=== PATIENT | female | born 1940 | race Caucasian/White ===

== ENCOUNTER 2021-10-07 09:52 | Day surgery (SDC) | payer MEDICARE, OTHER ==
[~2021-10-07] VITALS: Ht 160 cm; Wt 78.2 kg
[2021-10-07] MEDS ORDERED: TOPROL XL 50MG50 MG PO (10:32)
[2021-10-07] MEDS ORDERED: DILTIAZEM ER PO (10:33)
[2021-10-07] MEDS ORDERED: ULTRAM 50MG TAB50 MG PO (10:33)
[2021-10-07] MEDS ORDERED: PRESSOR VISION (10:34)
[2021-10-07 11:10] VITALS: BP 188/67; PULSE 71; TEMP 98.2
--- NOTE | 2021-10-07 11:15 | NUR ---
Raissa called about elevated BP 188/67. No new orders.
[2021-10-07] MEDS ORDERED: NORCO 325 MG-51 TAB PO (13:56)
[2021-10-07 14:30] VITALS: BP 159/57; PULSE 72; TEMP 989
--- NOTE | 2021-10-07 14:30 | NUR ---
Patient was escorted back to [facility] bay #2 by DI Hebert. Report obtained over the phone. Vitals obtained. Patient is awake and oriented x3. Her son was brought into the room from the waiting area. x5 incisions across abdomen are dry and intact, no drainage noted. Patient denies pain, but states discomfort. She requested ice water to drink and denies neusea. Will continue to monitor per intervals. Call carmona is at bedside. Side rails x2.
[2021-10-07 14:45] VITALS: BP 162/54; PULSE 70
--- NOTE | 2021-10-07 14:45 | NUR ---
Patient continues to drink her ice water. She requested a warm blueberry muffin to eat. Vitals obtained. Will continue to monitor per intervals.
[2021-10-07 15:00] VITALS: BP 168/61; PULSE 73
--- NOTE | 2021-10-07 15:00 | NUR ---
Vitals obtained. Patient requested jello. Call carmona is within reach.
[2021-10-07 15:15] VITALS: BP 170/55; PULSE 73
--- NOTE | 2021-10-07 15:15 | NUR ---
Patient was assisted to the bathroom and was able to void. Patient stated having discomfort around areas of incisions. She said sitting feels better than laying down. Vitals obtained. Patient expressed desire to be discharged.
--- NOTE | 2021-10-07 15:30 | NUR ---
IV discontinued at this time due to impending discharge. Catheter tip intact. Pressure dressing applied.
--- NOTE | 2021-10-07 15:35 | NUR ---
Discharge instructions and educational material was reviewed at this time. Patient verbalize understanding of the information and signed the related consent. She denied having any further questions or concerns. Patient was assisted changing into her personal clothes. PRN pain medication administered.
--- NOTE | 2021-10-07 15:55 | NUR ---
Patient was escorted out via wheelchair to the patient entrence by DI Hager. Her son Gomez has the discharge instructions and educational material. The patient has her personal belongings. Patient denied having any further questions. Patient asked if medications can be changed to a pharmacy in [place]. Script was E scribed to the orginal pharmacy given during pre-op.
== END 2021-10-07 15:55 | disposition home or self-care (01) ==
LOC: SDCO 09:52
DX: K80.64 Calculus of gallbladder and bile duct with chronic cholecystitis without obstruction (principal); I10 Essential (primary) hypertension; K21.9 Gastro-esophageal reflux disease without esophagitis; F17.210 Nicotine dependence, cigarettes, uncomplicated; G89.29 Other chronic pain; M25.519 Pain in unspecified shoulder; Z79.891 Long term (current) use of opiate analgesic; Z79.899 Other long term (current) drug therapy
CPT/HCPCS: J0330; J0690; J1100; J1610; J1885; J2405; J2704; J7120; Q9967

== ENCOUNTER 2023-10-22 10:31 | Inpatient (IN) | payer MEDICARE, OTHER ==
[~2023-10-22] VITALS: Ht 160 cm; Wt 83.4 kg
[~2023-10-22 10:31] MED LIST: CEFTIN 250250 MG/TAB PO; DILTIAZEM ER PO; NORCO 325 MG-51 TAB PO; PRESSOR VISION; TOPROL XL 50MG50 MG PO; ULTRAM 50MG TAB50 MG PO
[2023-10-22 10:53] LABS: COLLECTION METHOD CATHETER
[2023-10-22] MEDS ORDERED: NS 1,000 ML IV ONE (11:00)
[2023-10-22 11:13] LABS: PH 6.5 (5.0-8.5); SQUAMOUS EPITHELIAL 0-2 /hpf (0-10); URINE APPEARANCE Clear (CLEAR/HAZY); URINE BLOOD Negative (NEGATIVE); URINE COLOR Yellow (YELLOW); URINE GLUCOSE Negative (NEGATIVE); URINE KETONE Negative (NEGATIVE); URINE NITRATE Negative (NEGATIVE); URINE PROTEIN(semi-quant) Negative (NEGATIVE)
[2023-10-22 11:36] LABS: BASO # 0.1 K/mm3 (0.0-0.2); BASO % 1.1 % (0.0-2.0); EOS % 0.1 % (0.0-4.0); GRAN # 4.8 K/mm3 (1.4-6.5); GRAN % 66.1 % (42.2-75.2); LYMPH # 1.8 K/mm3 (1.2-3.4); LYMPH % 25.5 % (20.0-51.0); MEAN CELL VOLUME 101 fl (80.0-100.0); MEAN CORPUSCULAR HGB CONC 31 g/dl (33.0-37.0); MEAN PLATELET VOLUME 8.5 fl (7.4-10.4); MONO # 0.5 K/mm3 (0.1-0.6); MONO % 6.9 % (1.7-9.3); PLATELET COUNT 337 K/mm3 (130-400); REDCELL DISTRIBUTION WIDTH-CV 16.8 % (11.5-14.5)
[2023-10-22 11:42] LABS: HEMATOCRIT 30.4 % (37.0-47.0); HEMOGLOBIN 9.5 g/dl (12.5-16.0); MEAN CORPUSCULAR HEMOGLOBIN 32 pg (27-31)
[2023-10-22 11:51] LABS: ALBUMIN 3.1 gm/dL (3.4-4.8); BILIRUBIN,TOTAL 0.6 mg/dL (0.2-1.2); CALCIUM 9.3 mg/dL (8.4-10.2); CREATININE, serum 0.79 mg/dL (0.57-1.11); POTASSIUM 4.1 mmol/L (3.5-4.5); TOTAL PROTEIN 7.4 gm/dL (6.2-8.1)
[2023-10-22] MEDS ORDERED: dexAMETHasone 10 MG/ML VIAL IV ONE (12:00)
[2023-10-22] MEDS ORDERED: LIPITOR 80MG80 MG PO (12:31)
[2023-10-22] MEDS ORDERED: ASPIRIN 81M81 MG/TA2 PO (12:32)
[2023-10-22] MEDS ORDERED: PLAVIX 75MG TAB75 MG PO (12:33)
[2023-10-22] MEDS ORDERED: ZESTRIL 20MG TA20 MG PO (12:33)
[2023-10-22] MEDS ORDERED: REQUIP 0.5MG0.5 MG PO (12:34)
[2023-10-22] MEDS ORDERED: SENNA-LAX8.6 MG PO ×2 (12:34→15:52)
[2023-10-22] MEDS ORDERED: PRIL40 PO (12:36)
[2023-10-22] MEDS ORDERED: NEURONTIN300 MG/CAP PO (13:13)
[2023-10-22] MEDS ORDERED: NEURONTIN100 MG/CAP PO (13:14)
[2023-10-22] MEDS ORDERED: ULTRAM 50MG TAB50 MG PO (13:15)
[2023-10-22 14:35] VITALS: BP 151/73; PULSE 81
--- NOTE | 2023-10-22 14:48 | NUR ---
PATIENT ARRIVED FROM ER IN STABLE CONDITION. FALL PRECAUTIONS PUT IN PLACE. PATIENT IS DROWSY, AROUSABLE TO NAME. PATIENT IS CONFUSED. RN WILL DO ADMITION WITH PAPER WORK PROVIDED BY [facility] . PATIENTS CALL LIGHT WITHIN REACH. FALL PRECAUTIONS IN PLACE.
[2023-10-22 14:57] VITALS: BP_SYST 151
--- NOTE | 2023-10-22 15:51 | NUR ---
Eran at [facility] requested updates which SW provided via secure email.
[2023-10-22 17:11] VITALS: BP_SYST 151
--- NOTE | 2023-10-22 17:40 | NUR ---
FARZANEH AMIODARONE DISOCTINUED (2 HOURS POST PO ADMINISTRATION) ORDERED BY DR PHILLIP.
[2023-10-22] MEDS ORDERED: Acetaminophen 325 MG TAB PO PRN (18:15)
[2023-10-22] MEDS ORDERED: Polyethylene Glycol 3350 17 GM PDS PO PRN (18:15)
[2023-10-22] MEDS ORDERED: Ondansetron 4 MG/2 ML VIAL IV PRN (18:15)
[2023-10-22] MEDS ORDERED: Docusate Sodium 100 MG CAP PO PRN (18:15)
[2023-10-22] MEDS ORDERED: Albuterol 90 MCG/PUFF 8 GM MDI IH SCH (19:00)
[2023-10-22 19:43] VITALS: BP 161/62; PULSE 70; TEMP 97.3
[2023-10-22 21:00] VITALS: BP_SYST 161
[2023-10-22] MEDS ORDERED: Gabapentin 100 MG CAP PO SCH (21:00)
--- NOTE | 2023-10-22 22:59 | NUR ---
patient lying in bed alert and oriented x3 with some confusion/forgetfullness. pt denies chest pain and shortness of breath. IV in RF is patent, site clean dry and intact. general scattered bruising on extremities noted. pt up to bedside commode and back in bed x2 assist with weak gait. pt has no further needs questions or concerns. fall precautions in place, call light within reach, will continue to monitor.
[2023-10-22 23:12] VITALS: BP 97/45; PULSE 62; TEMP 98.3
[2023-10-23] VITALS (12 sets, daily range): BP systolic 117–148; BP diastolic 51–85; PULSE 72–101; TEMP 97.4–103.1
[2023-10-23] MEDS ORDERED: Omeprazole 40 MG **** subs to Pantoprazole 40 MG PO SCH (07:00)
[2023-10-23] MEDS ORDERED: PANTOPRAZOLE 40 MG PO SCH (07:00)
--- NOTE | 2023-10-23 07:30 | NUR ---
ELYSIA ASLEEP, RESTING IN BED. 2LNC. CALL LIGHT WITHIN REACH, BED ALARM ON, TELE SITTER ON. FALL PRECAUTIONS IN PLACE.
[2023-10-23 08:39] LABS: ALBUMIN 3.2 gm/dL (3.4-4.8); BILIRUBIN,TOTAL 0.6 mg/dL (0.2-1.2); CALCIUM 9.5 mg/dL (8.4-10.2); CREATININE, serum 0.78 mg/dL (0.57-1.11); POTASSIUM 4.1 mmol/L (3.5-4.5); TOTAL PROTEIN 7.7 gm/dL (6.2-8.1)
[2023-10-23 08:45] LABS: BASO # 0.1 K/mm3 (0.0-0.2); BASO % 1.1 % (0.0-2.0); EOS # 0.1 K/mm3 (0.0-0.7); GRAN % 62.4 % (42.2-75.2); HEMOGLOBIN 10.7 g/dl (12.5-16.0); LYMPH % 24.6 % (20.0-51.0); MEAN CELL VOLUME 104 fl (80.0-100.0); MEAN CORPUSCULAR HEMOGLOBIN 34 pg (27-31); MEAN CORPUSCULAR HGB CONC 32 g/dl (33.0-37.0); MEAN PLATELET VOLUME 8.6 fl (7.4-10.4); MONO # 0.8 K/mm3 (0.1-0.6); MONO % 9.9 % (1.7-9.3); PLATELET COUNT 345 K/mm3 (130-400); RED BLOOD COUNT 3.19 M/mm3 (4.10-5.30); REDCELL DISTRIBUTION WIDTH-CV 16.9 % (11.5-14.5)
[2023-10-23 08:46] LABS: HEMATOCRIT 33.1 % (37.0-47.0)
[2023-10-23] MEDS ORDERED: dexAMETHasone 10 MG/ML VIAL IV SCH (09:00)
[2023-10-23] MEDS ORDERED: Clopidogrel 75 MG TAB PO SCH (09:00)
[2023-10-23] MEDS ORDERED: Gabapentin 300 MG CAP PO SCH (09:00)
[2023-10-23] MEDS ORDERED: Lisinopril 10 MG TAB PO SCH (09:00)
[2023-10-23] MEDS ORDERED: rOPINIRole 0.5 MG TAB PO SCH (09:00)
[2023-10-23 12:06] LABS: ARTERIAL BLD GAS O2 SATURATION 93.5 % (92-100); ARTERIAL BLD GAS TCO2 CT 30.2; ARTERIAL BLOOD GAS BASE EXCESS 6.6 (-2-2); ARTERIAL BLOOD GAS HCO3 29.2 meq/L (22-26); ARTERIAL BLOOD GAS PCO2 34.5 mmHg (35-45); ARTERIAL BLOOD GAS PO2 63.2 mmHg (80-100); ARTERIAL BLOOD GAS pH 7.55 (7.35-7.45)
--- NOTE | 2023-10-23 15:50 | NUR ---
ELYSIA ASLEEP, RESTING IN BED. CALL LIGHT WITHIN REACH. TELESITTER PRESENT
[2023-10-23] MEDS ORDERED: Albuterol 90 MCG/PUFF 8 GM MDI IH PRN (18:45)
--- NOTE | 2023-10-23 18:49 | NUR ---
PATIANET TURNED Q2H. FULL BED/LINEN CHANGE CMOPLETE. PATIENT AROUSES TO NAME, BUT CONTINUES TO BE DROWSY. PATIENT CURRENTLY ON 1LNC. CALL LIGHT WITHIN REACH, BED ALARM ON, FALL PRECAUTIONS IN PLACE.
--- NOTE | 2023-10-23 21:25 | NUR ---
Patient assessed at this time, see shift assessment, drowsy at this time but arousable, VSS, remains on oxygen at 1LPM, incontinent of urine at this time, pericare provided, pad changed, call light and personal items within reach, fall precautions in place, will continue to monitor.
--- NOTE | 2023-10-23 22:58 | NUR ---
Patient called and said she wanted to get up, this nurse came into her, patient thinks it's time for breakfast, reorientated patient, offered her jello and sandwich box, took pills fine, denies further needs, call light and personal items within reach.
[2023-10-24] VITALS (12 sets, daily range): BP systolic 100–155; BP diastolic 42–85; PULSE 68–116; TEMP 97.3–103
--- NOTE | 2023-10-24 04:55 | NUR ---
Incontinent of urine at this time, pericare provided, changed pad, repositioned patient to her left side, temp at 97.3.
--- NOTE | 2023-10-24 05:15 | NUR ---
MEW score of 3, reviewed with charge nurse.
[2023-10-24 07:24] LABS: BASO % 0.4 % (0.0-2.0); EOS % 0.1 % (0.0-4.0); GRAN # 5.5 K/mm3 (1.4-6.5); GRAN % 75.9 % (42.2-75.2); LYMPH # 0.9 K/mm3 (1.2-3.4); LYMPH % 12.9 % (20.0-51.0); MEAN CELL VOLUME 100 fl (80.0-100.0); MEAN CORPUSCULAR HGB CONC 32 g/dl (33.0-37.0); MEAN PLATELET VOLUME 8.6 fl (7.4-10.4); MONO # 0.8 K/mm3 (0.1-0.6); MONO % 10.4 % (1.7-9.3); PLATELET COUNT 328 K/mm3 (130-400); RED BLOOD COUNT 2.85 M/mm3 (4.10-5.30); REDCELL DISTRIBUTION WIDTH-CV 16.7 % (11.5-14.5)
[2023-10-24 07:25] LABS: HEMATOCRIT 28.5 % (37.0-47.0); HEMOGLOBIN 9.1 g/dl (12.5-16.0); MEAN CORPUSCULAR HEMOGLOBIN 32 pg (27-31)
[2023-10-24 07:47] LABS: ALBUMIN 2.9 gm/dL (3.4-4.8); BILIRUBIN,TOTAL 0.5 mg/dL (0.2-1.2); CALCIUM 8.9 mg/dL (8.4-10.2); CREATININE, serum 0.78 mg/dL (0.57-1.11); MAGNESIUM 1.8 mg/dL (1.6-2.6); POTASSIUM 3.6 mmol/L (3.5-4.5); TOTAL PROTEIN 7.2 gm/dL (6.2-8.1)
--- NOTE | 2023-10-24 09:10 | NUR ---
Patient awake, alert, confused. Breathing regularly at rest, shortness of breath with exertion. Able to stand/pivot with the assistance of two staff members. Denies pain or nausea. Bed in lowest position with call light within reach. Requesting additional food and snacks throughout the day. Bed alarm on, telesitter in place.
--- NOTE | 2023-10-24 16:12 | NUR ---
horticulture worker was informed pt is from [facility]. SW emailed clinical updates to Eran at [facility]. Discharge Plan: [facility]
--- NOTE | 2023-10-24 18:48 | NUR ---
Oxygen removed, patient breathing easily with O2 sat in the mid 90s. Tolerated dinner well, denies further needs at this time. Bed in lowest position with call light within reach, bed alarm on.
--- NOTE | 2023-10-24 19:50 | NUR ---
PATIENT RESTING IN BED WITH TV ON WITH AUDIBLE SNORING HEARD WITH NO ACUTE DISTRESS NOTED. PATIENT EASILY AROUSED. PATIENT ON ROOM AIR. TELEMETRY INTACT. ASSESSMENT AND MEDICATION ADMINISTRATION COMPLETED AT THIS TIME. PATIENT TOLERATED WELL. ALL NEEDS MET. BED IN LOW POSITION WITH WHEELS LOCKED WITH RAILS UP X3 AND CALL LIGHT WITHIN REACH. BED ALARM ON.
[2023-10-25] VITALS (7 sets, daily range): BP systolic 143–161; BP diastolic 52–67; PULSE 89–103; TEMP 98.5–100.5
[2023-10-25 07:45] LABS: BASO # 0.1 K/mm3 (0.0-0.2); EOS # 0.1 K/mm3 (0.0-0.7); EOS % 1.6 % (0.0-4.0); GRAN # 5.1 K/mm3 (1.4-6.5); GRAN % 63.3 % (42.2-75.2); LYMPH # 1.8 K/mm3 (1.2-3.4); MEAN CELL VOLUME 97 fl (80.0-100.0); MEAN CORPUSCULAR HGB CONC 32 g/dl (33.0-37.0); MEAN PLATELET VOLUME 8.6 fl (7.4-10.4); MONO # 0.9 K/mm3 (0.1-0.6); MONO % 11.8 % (1.7-9.3); PLATELET COUNT 318 K/mm3 (130-400); RED BLOOD COUNT 3.05 M/mm3 (4.10-5.30); REDCELL DISTRIBUTION WIDTH-CV 16.1 % (11.5-14.5)
[2023-10-25 07:53] LABS: HEMATOCRIT 29.5 % (37.0-47.0); HEMOGLOBIN 9.5 g/dl (12.5-16.0); MEAN CORPUSCULAR HEMOGLOBIN 31 pg (27-31)
[2023-10-25 08:12] LABS: ALBUMIN 2.9 gm/dL (3.4-4.8); BILIRUBIN,TOTAL 0.3 mg/dL (0.2-1.2); CALCIUM 8.6 mg/dL (8.4-10.2); CREATININE, serum 0.78 mg/dL (0.57-1.11); MAGNESIUM 1.8 mg/dL (1.6-2.6); POTASSIUM 3.5 mmol/L (3.5-4.5); TOTAL PROTEIN 7.4 gm/dL (6.2-8.1)
[2023-10-25] MEDS ORDERED: ZESTRIL30 MG PO (09:19)
--- NOTE | 2023-10-25 09:41 | NUR ---
Patient awake, alert, confused. Assisted to bedside commode, x1 assist. On room air, slight temperature this AM, hospitalist aware. Good appetite. Fall precautions in place, telesitter in room.
--- NOTE | 2023-10-25 10:28 | NUR ---
Report called to Trini owens via [facility].
--- NOTE | 2023-10-25 11:09 | NUR ---
plate put in worker was informed pt can discharge to [facility] today. KEISHA sent orders and updates to [facility]. Eran arranged a picker tender of 10:45am. KEISHA attempted to call patient's room to complete intake and no answer. RN reports pt is not oriented and confused. KEISAH left a voicemail to pt's son, Gomez [phone] regarding intake and discharge. IM from Medicare could not be completed. Discharge Plan: [facility] 10:45am
--- NOTE | 2023-10-25 11:18 | NUR ---
Discharged to [facility], IV and air sampling and monitoring removed prior to discharge. All belongings sent with patient.
== END 2023-10-25 11:00 | DRG 177 ==
LOC: COL.ER 10:31 → MEDICAL 12:11
PROVIDERS: Physician Assistant; ADMIT Hospitalist
DX: U07.1 COVID-19 (principal); J96.01 Acute respiratory failure with hypoxia; Z86.73 Personal history of transient ischemic attack (TIA), and cerebral infarction without residual deficits; F03.90 Unspecified dementia, unspecified severity, without behavioral disturbance, psychotic disturbance, mood disturbance, and anxiety; K21.9 Gastro-esophageal reflux disease without esophagitis; I10 Essential (primary) hypertension; I48.91 Unspecified atrial fibrillation; G25.81 Restless legs syndrome
CPT/HCPCS: J1100; J1650; J7030

== ENCOUNTER 2023-10-31 15:42 | Inpatient (IN) | payer MEDICARE, OTHER ==
[~2023-10-31] VITALS: Ht 167.6 cm; Wt 83.0 kg
[~2023-10-31 15:42] MED LIST changes: +ASPIRIN 81M81 MG/TA2 PO; +LIPITOR 80MG80 MG PO; +NEURONTIN100 MG/CAP PO; +NEURONTIN300 MG/CAP PO; +PLAVIX 75MG TAB75 MG PO; +PRIL40 PO; +REQUIP 0.5MG0.5 MG PO; +SENNA-LAX8.6 MG PO; +ZESTRIL 20MG TA20 MG PO; +ZESTRIL30 MG PO
[2023-10-31 16:33] LABS: BASO % 0.4 % (0.0-2.0); EOS % 0.1 % (0.0-4.0); GRAN # 6.1 K/mm3 (1.4-6.5); HEMATOCRIT 29.9 % (37.0-47.0); HEMOGLOBIN 9.1 g/dl (12.5-16.0); LYMPH # 1.2 K/mm3 (1.2-3.4); LYMPH % 15.3 % (20.0-51.0); MEAN CELL VOLUME 99 fl (80.0-100.0); MEAN CORPUSCULAR HEMOGLOBIN 30 pg (27-31); MEAN CORPUSCULAR HGB CONC 30 g/dl (33.0-37.0); MONO # 0.4 K/mm3 (0.1-0.6); MONO % 4.8 % (1.7-9.3); PLATELET COUNT 358 K/mm3 (130-400); RED BLOOD COUNT 3.02 M/mm3 (4.10-5.30); REDCELL DISTRIBUTION WIDTH-CV 16.6 % (11.5-14.5)
[2023-10-31 16:52] LABS: ALBUMIN 2.4 gm/dL (3.4-4.8); BILIRUBIN,TOTAL 0.4 mg/dL (0.2-1.2); CALCIUM 8.7 mg/dL (8.4-10.2); CREATININE, serum 1.56 mg/dL (0.57-1.11); TOTAL PROTEIN 7.2 gm/dL (6.2-8.1)
[2023-10-31 18:04] LABS: COLLECTION METHOD CLEAN CATCH
[2023-10-31 18:25] LABS: PH 5.5 (5.0-8.5); URINE APPEARANCE Clear (CLEAR/HAZY); URINE BLOOD 2+ (NEGATIVE); URINE COLOR Straw (YELLOW); URINE GLUCOSE Negative (NEGATIVE); URINE KETONE Negative (NEGATIVE); URINE NITRATE Negative (NEGATIVE); URINE PROTEIN(semi-quant) 1+ (NEGATIVE); URINE UROBILINOGEN 0.2 E.U/dL (0.2-1.0)
[2023-10-31 18:26] LABS: SQUAMOUS EPITHELIAL 0-2 /hpf (0-10); URINE BACTERIA Rare /hpf (NONE SEEN)
[2023-10-31 21:00] VITALS: BP_SYST 124
--- NOTE | 2023-10-31 21:58 | NUR ---
PATIENT ARRIVED TO UNIT WITH ED RN AND TECH.
[2023-10-31 22:14] VITALS: BP 124/40; PULSE 85; TEMP 98.4
--- NOTE | 2023-10-31 22:56 | NUR ---
PATIENT DOES NOT APPEAR TO BE IN DISTRESS AT THIS TIME. WILSON CATHETAR IN PALCE WITH DEPENDENT DRAINAGE. SUPPLEMENTAL OXYGEN BEING PROVIDED VIA NASAL CANNULA AT 3L. PATIENT IS ONLY ORIENTED TO SELF AND IS HOLLERING OUT. RN CALLED VIA [employer] AND STAFF REPORTED THIS IS BASELINE. SHE IS DEMENTED AND HOLLERS FREQUENTLY. PATIENT REQUESTED SANDWICH BOX. NO FURTHER NEEDS AT THIS TIME. PATIENT STATING "HOW DO I GET OUT OF HERE". BED IN LOW POSITION AND CALL LIGHT WITHIN REACH. BED ALARM ON.
[2023-11-01] VITALS (14 sets, daily range): BP systolic 14–148; BP diastolic 52–113; PULSE 64–798; TEMP 97.7–98
[2023-11-01] MEDS ORDERED: NEURONTIN300 MG/CAP PO (09:36)
[2023-11-01 09:39] LABS: BASO % 0.1 % (0.0-2.0); GRAN # 6.2 K/mm3 (1.4-6.5); GRAN % 83.8 % (42.2-75.2); LYMPH # 0.8 K/mm3 (1.2-3.4); LYMPH % 11.3 % (20.0-51.0); MEAN CELL VOLUME 95 fl (80.0-100.0); MEAN CORPUSCULAR HGB CONC 32 g/dl (33.0-37.0); MEAN PLATELET VOLUME 8.9 fl (7.4-10.4); MONO # 0.3 K/mm3 (0.1-0.6); MONO % 4.3 % (1.7-9.3); PLATELET COUNT 383 K/mm3 (130-400); REDCELL DISTRIBUTION WIDTH-CV 16.1 % (11.5-14.5)
[2023-11-01 09:46] LABS: HEMATOCRIT 27.4 % (37.0-47.0); HEMOGLOBIN 8.7 g/dl (12.5-16.0); MEAN CORPUSCULAR HEMOGLOBIN 30 pg (27-31)
[2023-11-01 09:55] LABS: ALBUMIN 2.2 gm/dL (3.4-4.8); CALCIUM 8.8 mg/dL (8.4-10.2); CREATININE, serum 0.85 mg/dL (0.57-1.11); MAGNESIUM 1.7 mg/dL (1.6-2.6); POTASSIUM 3.9 mmol/L (3.5-4.5)
--- NOTE | 2023-11-01 10:03 | NUR ---
Patient awake, alert, confused. Denies pain or nausea, shortness of breath on exertion, nasal cannula in place. Repetitive, asking for breakfast and to get up. Bed alarm on, fall precautions in place. Bed in lowest position with call light within reach.
--- NOTE | 2023-11-01 13:00 | NUR ---
Patient complaining of foot pain - no PRN orders, Dr. Garner called, see orders.
--- NOTE | 2023-11-01 13:31 | NUR ---
Patient was recently in the hospital on medical floor and this SW was unable to make contact with Gomez FLETCHER [phone]. KEISHA spoke with RN Savanna who reports pt is not alert and oriented so not appropriate for SW to complete intake. KEISHA was notified by [facility] patient was at [facility]. SW left a voicemail to sonGomez. Discharge Plan: [facility]
--- NOTE | 2023-11-01 14:29 | NUR ---
yarn dry room worker viewed an individual go to patient's room and RN stopped him for SW. He confirmed he is son, Rei [phone]. SW went over intake information to the best of his ability. He states pt is from [facility] and is unsure who her provider is and where medications are retrieved. He reports he is DPOA-HC. He said she needs full assistance with ADLS and at baseline she uses a wheelchair for DME. He would like her to return to [facility] LTC. Discharge Plan: [facility] Long-term care
--- NOTE | 2023-11-01 18:52 | NUR ---
PATIENT RESTING IN BED WITH TV ON WITH NO ACUTE DISTRESS NOTED. PATIENT ON 2 LITERS OF OXYGEN VIA NC. TELEMETRY INTACT. TELESITTER AT BEDSIDE. INT TO LEFT AC INTACT WITH NO COMPLICATIONS NOTED. PATIENT CARE TAKEN OVER FROM LILIANA AT THIS TIME. BED IN LOW POSITION WTIH WHEELS LOCKED WITH RAILS UP X3 AND CALL LIGHT WITHIN REACH. BED ALARM ON.
--- NOTE | 2023-11-01 20:15 | NUR ---
PATIENT RESTING IN BED WATCHING TV WITH NO ACUTE DISTRESS NOTED. PATIENT ON 2 LITERS OF OXYGEN VIA NC. ASSESSMENT AND MEDICATION ADMINISTRATION COMPLETED AT THIS TIME. PATIENT C/O BACK PAIN. PO ULTRAM GIVEN PER MD ORDER. PATIETN GIVEN PUDDING FOR NIGHT TIME SNACK. PATIENT TOELRATED WELL. PATIENT NOTED TO HAVE TREMORS IN ARMS UPON MOVEMENT. PATIENT REQUESTED MORE WATER. ICE AND WATER GIVEN. ALL NEEDS MET. BED IN LOW POSITION WITH WHEELS LOCKED WITH RAILS UP X3 AND CALL LIGHT WITHIN REACH. BED ALARM ON.
[2023-11-02] VITALS (12 sets, daily range): BP systolic 136–180; BP diastolic 56–79; PULSE 61–74; TEMP 97.3–98.5
[2023-11-02 07:24] LABS: BASO % 0.1 % (0.0-2.0); EOS % 0.1 % (0.0-4.0); GRAN # 9.2 K/mm3 (1.4-6.5); GRAN % 87.3 % (42.2-75.2); LYMPH # 0.8 K/mm3 (1.2-3.4); LYMPH % 7.2 % (20.0-51.0); MEAN CELL VOLUME 91 fl (80.0-100.0); MEAN CORPUSCULAR HGB CONC 34 g/dl (33.0-37.0); MEAN PLATELET VOLUME 9.3 fl (7.4-10.4); MONO # 0.5 K/mm3 (0.1-0.6); MONO % 4.7 % (1.7-9.3); RED BLOOD COUNT 2.95 M/mm3 (4.10-5.30); REDCELL DISTRIBUTION WIDTH-CV 16.1 % (11.5-14.5)
[2023-11-02 07:29] LABS: ALBUMIN 2.1 gm/dL (3.4-4.8); CALCIUM 8.5 mg/dL (8.4-10.2); CREATININE, serum 0.7 mg/dL (0.57-1.11); MAGNESIUM 1.7 mg/dL (1.6-2.6); PHOSPHOROUS 1.6 mg/dL (2.3-4.7); POTASSIUM 5.5 mmol/L (3.5-4.5)
[2023-11-02 07:49] LABS: HEMATOCRIT 26.9 % (37.0-47.0); MEAN CORPUSCULAR HEMOGLOBIN 31 pg (27-31); PLATELET COUNT 431 K/mm3 (130-400)
--- NOTE | 2023-11-02 09:33 | NUR ---
Patient alert and oriented to self and situation at baseline. Shift assessment complete. Patient noted to have some SOA with exertion. Tolerating food and fluids well. O2 stable on 2L oxymask. Patient denies pain. All needs met at this time.
--- NOTE | 2023-11-02 10:20 | NUR ---
fibreglass lay up worker was informed by Dr. Garner pt could potentially discharge tomorrow due to increase in oxygen. [facility] SW completed IM from Medicare. Pt verbalized understanding of KEISHA's statements. KEISHA provided pt a copy and placed original in chart. Discharge plan: [facility]
--- NOTE | 2023-11-02 13:51 | NUR ---
ICU nurse called to notify this nurse that hearth rhythm was in Afib. Patient in dialysis at this time, heart rhythm now in sinus. Rate has been in 70s. Dr. Alaniz and RT notified.
--- NOTE | 2023-11-02 19:17 | NUR ---
PRN Ultram administered for noted discomfort. Patient alert and oriented at baseline. Currently in bed with call light in reach.
--- NOTE | 2023-11-02 19:30 | NUR ---
PATIENT SITTING UP IN BED WITH TV ON WITH NO ACUTE DISTRESS NOTED. PATIENT ON 4 LITERS OF OXYGEN VIA NC. DOXYCYCLINE STOPPED FOR IV LEAKING AND INFLAMMATION. ASSESSMENT AND MEDICATION ADMINISTRATION COMPLETED AT THIS TIME. PATIENT TOLERATED WELL. PATIENT TRAY SET UP AND PATIENT EATING. PATIENT DENIES ANY NEEDS AT PRESENT. BED IN LOW POSITION WITH WHEELS LOCKED WITH RAILS UP X3 AND CALL LIGHT WITHIN REACH. TELESITTER IN ROOM. BED ALARM ON.
--- NOTE | 2023-11-02 19:55 | NUR ---
IV REMOVED FROM LEFT AC WITH CATHETER INTACT AND PRESSURE DRESSING APPLIED. PATIENT TOLERATED WELL.
--- NOTE | 2023-11-02 21:40 | NUR ---
BLOOD PRESSURE RECHECKED. BP 161/56 NOW.
[2023-11-03 01:00] VITALS: BP_SYST 119
--- NOTE | 2023-11-03 03:00 | NUR ---
RECEIVED REPORT FROM DI FERRARA.
[2023-11-03 03:18] VITALS: BP 119/84; PULSE 61; TEMP 98.3
[2023-11-03 05:00] VITALS: BP_SYST 119
[2023-11-03 06:54] VITALS: BP 167/81; PULSE 63; TEMP 97.7
[2023-11-03 07:34] LABS: GRAN # 8.4 K/mm3 (1.4-6.5); GRAN % 81.7 % (42.2-75.2); LYMPH # 1.2 K/mm3 (1.2-3.4); LYMPH % 11.5 % (20.0-51.0); MEAN CELL VOLUME 94 fl (80.0-100.0); MEAN CORPUSCULAR HGB CONC 32 g/dl (33.0-37.0); MEAN PLATELET VOLUME 8.8 fl (7.4-10.4); MONO # 0.6 K/mm3 (0.1-0.6); MONO % 5.9 % (1.7-9.3); PLATELET COUNT 509 K/mm3 (130-400); RED BLOOD COUNT 2.95 M/mm3 (4.10-5.30); REDCELL DISTRIBUTION WIDTH-CV 16.4 % (11.5-14.5)
[2023-11-03 07:48] LABS: ALBUMIN 2.2 gm/dL (3.4-4.8); CALCIUM 8.7 mg/dL (8.4-10.2); CREATININE, serum 0.69 mg/dL (0.57-1.11); MAGNESIUM 1.5 mg/dL (1.6-2.6); PHOSPHOROUS 2.4 mg/dL (2.3-4.7); POTASSIUM 3.9 mmol/L (3.5-4.5)
[2023-11-03 07:54] LABS: HEMATOCRIT 27.8 % (37.0-47.0); HEMOGLOBIN 8.9 g/dl (12.5-16.0); MEAN CORPUSCULAR HEMOGLOBIN 30 pg (27-31)
[2023-11-03 08:30] VITALS: BP_SYST 167
[2023-11-03] MEDS ORDERED: PROAIR HFA0.09 MG/AC IH (11:04)
[2023-11-03] MEDS ORDERED: DECADRON6 MG PO (11:04)
[2023-11-03] MEDS ORDERED: OMNICEF 300MG300 MG PO (11:04)
[2023-11-03] MEDS ORDERED: ANORO IH (11:05)
[2023-11-03] MEDS ORDERED: RT Anoro Ellipta IH (11:05)
[2023-11-03] MEDS ORDERED: DOXYCYCLINE 10100 MG PO (11:05)
--- NOTE | 2023-11-03 12:10 | NUR ---
Patient alert and oriented at baseline. Shift assessment completed this morning. Wheezes noted upon expiration to right side lung salmon. Patient appears flushed. BP elevated in 160s. Agitation noted as well, patient kept repeating "help me" and shouting. Re-direction did not last long. PRN Tramadol administered and patient calmed for 15 minutes before she began shouting again. Patient noted to have anxiety about when she can "get out." Dr. Garner updated on patient condition. Orders obtained for Seroquel and administered. Total bed bath provided to patient and linens changed, patient fell asleep shortly after.
--- NOTE | 2023-11-03 13:06 | NUR ---
hospital food service worker was informed pt can discharge today back to [facility]. KEISHA faxed discharge orders to Eran at [facility]. They can transport at 1:30pm. Discharge Plan: [facility] 1:30PM
--- NOTE | 2023-11-03 14:23 | NUR ---
Patient transferred back to [facility] around 1420. Transfer paperwork sent with transportation. IV discontinued to right wrist with no complications. Telemetry off. Torres discontinued per verbal orders from Dr. Garner. Attempted to call report to [facility], sent to [facility]. Mailbox full.
== END 2023-11-03 14:20 | DRG 177 ==
LOC: COL.ER 15:42 → MEDICAL 17:09
PROVIDERS: Family Medicine; ADMIT Internal Medicine
DX: U07.1 COVID-19 (principal); J12.82 Pneumonia due to coronavirus disease 2019; K21.9 Gastro-esophageal reflux disease without esophagitis; F03.90 Unspecified dementia, unspecified severity, without behavioral disturbance, psychotic disturbance, mood disturbance, and anxiety; G25.81 Restless legs syndrome; I48.91 Unspecified atrial fibrillation; I11.0 Hypertensive heart disease with heart failure; I50.9 Heart failure, unspecified; Z86.73 Personal history of transient ischemic attack (TIA), and cerebral infarction without residual deficits; Z87.440 Personal history of urinary (tract) infections; Z79.82 Long term (current) use of aspirin; Z79.899 Other long term (current) drug therapy; Z79.02 Long term (current) use of antithrombotics/antiplatelets; Z23 Encounter for immunization
CPT/HCPCS: J0696; J1200; J1650; J1790; J1940; J3475; J7030; J7050; J8540; Q9967

== ENCOUNTER 2024-04-05 12:28 | Inpatient (IN) | payer MEDICARE, OTHER ==
[~2024-04-05] VITALS: Ht 167.6 cm; Wt 91.6 kg
[~2024-04-05 12:28] MED LIST changes: +ANORO IH; +DECADRON6 MG PO; +DOXYCYCLINE 10100 MG PO; +OMNICEF 300MG300 MG PO; +PROAIR HFA0.09 MG/AC IH; +RT Anoro Ellipta IH
[2024-04-05 12:54] LABS: BASO # 0.1 K/mm3 (0.0-0.2); BASO % 0.6 % (0.0-2.0); EOS # 0.1 K/mm3 (0.0-0.7); EOS % 0.3 % (0.0-4.0); GRAN # 14.7 K/mm3 (1.4-6.5); GRAN % 83.5 % (42.2-75.2); LYMPH # 1.4 K/mm3 (1.2-3.4); LYMPH % 7.9 % (20.0-51.0); MEAN CELL VOLUME 89 fl (80.0-100.0); MEAN CORPUSCULAR HGB CONC 29 g/dl (33.0-37.0); MEAN PLATELET VOLUME 9.2 fl (7.4-10.4); MONO # 1.3 K/mm3 (0.1-0.6); MONO % 7.2 % (1.7-9.3); PLATELET COUNT 379 K/mm3 (130-400); RED BLOOD COUNT 3.49 M/mm3 (4.10-5.30); REDCELL DISTRIBUTION WIDTH-CV 16.8 % (11.5-14.5)
[2024-04-05 12:58] LABS: HEMATOCRIT 31.2 % (37.0-47.0); HEMOGLOBIN 9.1 g/dl (12.5-16.0); MEAN CORPUSCULAR HEMOGLOBIN 26 pg (27-31)
[2024-04-05 13:00] LABS: COLLECTION METHOD CATHETER
[2024-04-05] MEDS ORDERED: NS 1,000 ML IV ONE (13:00)
[2024-04-05 13:09] LABS: URINE APPEARANCE CLEAR (CLEAR/HAZY); URINE BLOOD NEGATIVE (NEGATIVE); URINE COLOR YELLOW (YELLOW); URINE GLUCOSE NEGATIVE (NEGATIVE); URINE KETONE NEGATIVE (NEGATIVE); URINE NITRATE NEGATIVE (NEGATIVE); URINE PROTEIN(semi-quant) 2+ (NEGATIVE)
[2024-04-05 13:10] LABS: ALBUMIN 3.1 g/dL (3.4-4.8); BILIRUBIN,TOTAL 0.4 mg/dL (0.2-1.2); CREATININE, serum 0.96 mg/dL (0.57-1.11); POTASSIUM 4.6 mEq/L (3.5-4.5); TOTAL PROTEIN 9.4 g/dl (6.2-8.1)
[2024-04-05] MEDS ORDERED: ASPERCREME85 GM TP (14:50)
[2024-04-05] MEDS ORDERED: ZEBETA 5MG5 MG PO (14:52)
[2024-04-05] MEDS ORDERED: APRESOLINE 25MG25 MG PO (14:53)
[2024-04-05] MEDS ORDERED: LASIX 40MG TABL40 MG PO (14:54)
[2024-04-05] MEDS ORDERED: NYSTATIN100000 U/1 TOP (14:55)
[2024-04-05] MEDS ORDERED: K-DUR 10 MEQ T10 MEQ PO (14:56)
[2024-04-05] MEDS ORDERED: REQUIP 0.5MG0.5 MG PO ×2 (14:57→14:58)
[2024-04-05] MEDS ORDERED: PRESERVISION1 SGL PO (14:57)
[2024-04-05] MEDS ORDERED: TYLENOL 325MG325 MG PO (14:59)
[2024-04-05] MEDS ORDERED: ATARAX 10MG10 MG/TAB PO (15:54)
[2024-04-05] MEDS ORDERED: HALLS9.1 MG PO (15:55)
[2024-04-05] MEDS ORDERED: *Potassium Replacement Protocol MC SCH (17:30)
--- NOTE | 2024-04-05 17:58 | NUR ---
PATIENT ARRIVED TO THE FLOOR AT APPROX 1730. PATIENT IS NOT ALERT AND ORIENTED. SON AT BEDSIDE. INTAKE INFORMATION OBTAINED BY SON. PATIENT IS ON 4L OF 02, SON SAYS THAT HAS BEEN HER BASELINE "FOR A WHILE." PATIENT'S RESPIRATIONS ARE SHALLOW AND CRACKLES ARE AUDIBLE IN UPPER LOBES BILAT. PITTING EDEMA NOTED TO RLE. ECCHYMOSIS NOTED TO RIGHT OUTER CALF AND LEFT SIDE OF FACE AND EYE. IVS TO BILAT FOREARMS. CDI. WILSON DRAINING DEPENDENTLY WITH CLEAR YELLOW URINE NOTED. FALL PRECAUTIONS IN PLACE. CALL LIGHT WITHIN REACH
[2024-04-05 18:01] VITALS: BP 130/59; PULSE 94; TEMP 100.7
[2024-04-05 18:06] VITALS: BP_SYST 130
--- NOTE | 2024-04-05 18:22 | NUR ---
THIS NURSE ATTEMPTED TO COMPLETE MED REC. CALLED PHARMACY TO SEE IF THERE WAS A COPY OF THE PATIENT'S MED LIST FROM THE RETIREMENT. CHRIS, FROM PHARMACY SAID HE WOULD SEND IT UP TO [facility].
--- NOTE | 2024-04-05 18:30 | NUR ---
THIS RN INFORMED NIGHT CATIA DESIGNER THAT PATIENT ADMITTED AT APROX 1730. NO CURRENT CODE STATUS, PATIENT IN AND OUT OF BEING VERBALLY RESPONSIVE, PATIENT ARRIVED WITH POOR ORAL CARE, (SEE ADMIN PHYSICAL ASSESS) PATIENTS TACHYPENIA HAS IMPROVED TO 22 BPM, WITH BETTER DEPTH THAN WHEN SHE ARRIVED. PATIENT TENDS TO MOUTH BREATHE. FALL PRECAUTIONS PUT IN PLACE. PER CATIA DESIGNER SHE WILL BE IN SOON TO ASSESS PATIENT AND PLACE ORDERS.
[2024-04-05] MEDS ORDERED: Furosemide 40 MG/4 ML VIAL IV ONE (19:00)
[2024-04-05] MEDS ORDERED: Albuterol/Ipratropium 3 MG-0.5 MG/3 ML Neb Soln IH PRN (19:00)
--- NOTE | 2024-04-05 19:01 | NUR ---
IV LASIX GIVEN, RT AT BEDSIDE FOR BIPAP. THIS RN INFORMED RT (3 PRESENT AT THIS TIME) THAT THE PAIL TESTER WOULD LIKE THE PATIENT TO RECIEVE A BREATHING TREATMENT AT THIS TIME. CALL LIGHT WTIHIN REACH, FALL PRECAUTIONS IN PLACE, WILSON PATENT AND DRAINGING DARK YELLOW URINE, IV ANTX INFUSING.
[2024-04-05] MEDS ORDERED: Vancomycin 1.5 GM,Special Dose/Pharmacy Prepared 1.5 GM in NS 250 ML IV ONE (19:15)
--- NOTE | 2024-04-05 19:26 | NUR ---
ABG ORDERED AND RT CALLED TO DRAW NOW
[2024-04-05 19:37] LABS: ARTERIAL BLD GAS O2 SATURATION 98.2 % (92-100); ARTERIAL BLD GAS TCO2 CT 32.7; ARTERIAL BLOOD GAS BASE EXCESS 6.6 (-2-2); ARTERIAL BLOOD GAS HCO3 31.3 meq/L (22-26); ARTERIAL BLOOD GAS PCO2 46.4 mmHg (35-45); ARTERIAL BLOOD GAS PO2 117.8 mmHg (80-100); ARTERIAL BLOOD GAS pH 7.45 (7.35-7.45)
[2024-04-05] MEDS ORDERED: Albuterol/Ipratropium 3 MG-0.5 MG/3 ML Neb Soln IH SCH (20:00)
[2024-04-05] MEDS ORDERED: Ibuprofen Oral Susp 100 MG/5 ML UD PO ONE (21:00)
[2024-04-05 21:07] VITALS: BP 131/67; PULSE 95; TEMP 101.4
[2024-04-05 21:10] VITALS: BP_SYST 131
[2024-04-05] MEDS ORDERED: Atorvastatin 80 MG TAB PO SCH (21:21)
[2024-04-06] VITALS (13 sets, daily range): BP systolic 105–135; BP diastolic 47–69; PULSE 64–100; TEMP 97.7–99.9
[2024-04-06 06:57] LABS: MEAN CELL VOLUME 89 fl (80.0-100.0); MEAN CORPUSCULAR HGB CONC 30 g/dl (33.0-37.0); MEAN PLATELET VOLUME 9.4 fl (7.4-10.4); RED BLOOD COUNT 2.82 M/mm3 (4.10-5.30); REDCELL DISTRIBUTION WIDTH-CV 16.8 % (11.5-14.5)
[2024-04-06 07:03] LABS: HEMATOCRIT 25.1 % (37.0-47.0); HEMOGLOBIN 7.6 g/dl (12.5-16.0); MEAN CORPUSCULAR HEMOGLOBIN 27 pg (27-31); PLATELET COUNT 263 K/mm3 (130-400)
[2024-04-06 07:06] LABS: ALBUMIN 2.1 g/dL (3.4-4.8); CREATININE, serum 1.35 mg/dL (0.57-1.11); MAGNESIUM 1.9 mg/dL (1.6-2.6); PHOSPHOROUS 5.1 mg/dL (2.3-4.7); POTASSIUM 3.6 mEq/L (3.5-4.5)
[2024-04-06] MEDS ORDERED: Pantoprazole 40 MG in NS 10 ML IV SCH (09:00)
[2024-04-06] MEDS ORDERED: Bisoprolol 5 MG TAB PO SCH (09:00)
[2024-04-06] MEDS ORDERED: Clopidogrel 75 MG TAB PO SCH (09:00)
--- NOTE | 2024-04-06 09:10 | NUR ---
PATIENT RESTING IN BED. ALERT, BUT NOT ORIENTED. ONLY ORIENTED TO SELF. VSS. PATIENT'S RESPIRATIONS ARE SHALLOW, AND COURSE LUNG SOUNDS NOTED. PATIENT IS ON 4L 02 VIA SIMPLE MASK. CONT PULSE OX MONITORING ON. SHIFT ASSESSMENT COMPLETE. PATIENT WAS ABLE TO TAKE PO MEDS WHOLE WITH WATER. PATIENT WANTS TO EAT, BUT 02 DROPS WHEN PATIENT WEARS NC D/T MOUTH BREATHING. THIS RN ASKED PCT TO WATCH 02 SATS WHILE PATIENT EATS BREAKFAST WITH NC ON, AND CALL NURSE IF 02 SATS DROP <90%. WILL MONITOR. CALL LIGHT WITHIN REACH.
[2024-04-06 09:19] LABS: BAND 17 % (0-10); LYMPHOCYTE 11 % (20.0-51.0); NEUTROPHILS 62 % (42.0-75.2); PLATELET ESTIMATE NORMAL (NORMAL)
[2024-04-06 09:20] LABS: ANISOCYTOSIS 1+; HYPOCHROMIA 1+
[2024-04-06] MEDS ORDERED: rOPINIRole 0.5 MG TAB PO SCH ×2 (15:00→21:00)
--- NOTE | 2024-04-06 17:39 | NUR ---
[employer]iz[employer] Consultant met briefly with patient to complete initial intake. Patient is able to tell SW that she lives at [facility] in [place] and plans to return there when she is ready for discharge. Patient has DPOA-HC in EMR designating her son, Rei (ph#[phone]) and son, Gomez (ph#[phone]). SW attempted to contact sonRei to discuss discharge planning and left a message. KEISHA contacted DI Oakley at [facility] to gather more information about patient. Patient currently sees Rema Murdock NP at [place] for primary care and will transition to [facility] when [place] closes this summer. Patient's medications are delivered to her home from [facility]. Cele advised patient does little walking and mostly uses a wheelchair for ambulation. Patient needs assistance with all ADLS. Cele advised patient was just discharged from [facility] but would likely benefit from services being started up again after hospitalization. Eva Núñez faxed updates to [facility] for review. Discharge Plan: Return to [facility] ([facility])
--- NOTE | 2024-04-06 18:09 | NUR ---
PATIENT HAS BEEN MORE ALERT THAN WHEN ADMITTED. PATIENT PARTICIPATES IN CONVERSATION BUT IS MORE CONFUSED AT TIMES. DOES NOT KNOW WHERE SHE IS, BUT DOES NOT TRY TO GET UP OUT OF BED. DENIES PAIN OR DISCOMFORT. PATIENT IS ON 2L VIA NC. CONT PULSE OX D/C'D PER MARYURI AND RT.
[2024-04-06] MEDS ORDERED: Acetaminophen 325 MG TAB PO PRN (19:30)
[2024-04-06] MEDS ORDERED: Melatonin 3 MG TAB PO SCH (21:00)
[2024-04-07] VITALS (12 sets, daily range): BP systolic 124–157; BP diastolic 64–76; PULSE 69–85; TEMP 97.7–98.9
[2024-04-07] MEDS ORDERED: Melatonin 3 MG TAB PO ONE (00:45)
--- NOTE | 2024-04-07 05:15 | NUR ---
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 PT COMPLAINED OF TINGLING/PAIN IN HER LEGS AND FEET AND ALSO IN HER UPPER EXTREMITIES. PT GIVEN TYLENOL AND HER SCHEDULED REQUIP. LESS THEN 30MIN LATER PT CALLED OUT AGAIN FOR PAIN MEDICATION AND SOMETHING TO HELP HER SLEEP. HOSPITALIST CALLED. 3MG MELATONIN AND A WARM BLANKET FOR PT'S LEGS, ORDERED AND GIVEN. THE MELATONIN HELPED FOR A WHILE, HOWEVER PT CALLED OUT AGAIN FOR SOMETHING TO HELP HER SLEEP. HOSPITALIST CALLED. AN ADDITIONAL DOSE OF MELATONIN ORDERED AND GIVEN. THE ADDITIONAL DOSE WAS MUCH MORE EFFECTIVE. PT GIVEN MORE TYLENOL SOON SHE COULD HAVE IT AGAIN BECAUSE PT WOULD NOT KEEP THE WARM BLANKET ON, PT STATED SHE WAS HOT. PT WAS ON THE CALL LIGHT A LOT TONIGHT. FALL PRECAUTIONS IN PLACE. BED ALARM ON. CALL LIGHT WITHIN REACH. PT CHECKED ON OFTEN.
[2024-04-07 06:39] LABS: BASO # 0.1 K/mm3 (0.0-0.2); BASO % 0.7 % (0.0-2.0); EOS # 0.1 K/mm3 (0.0-0.7); EOS % 0.7 % (0.0-4.0); GRAN # 8.1 K/mm3 (1.4-6.5); GRAN % 78.4 % (42.2-75.2); LYMPH # 1.3 K/mm3 (1.2-3.4); LYMPH % 12.5 % (20.0-51.0); MEAN CELL VOLUME 88 fl (80.0-100.0); MEAN CORPUSCULAR HGB CONC 29 g/dl (33.0-37.0); MEAN PLATELET VOLUME 9.4 fl (7.4-10.4); MONO # 0.7 K/mm3 (0.1-0.6); MONO % 7.1 % (1.7-9.3); PLATELET COUNT 289 K/mm3 (130-400); RED BLOOD COUNT 2.74 M/mm3 (4.10-5.30); REDCELL DISTRIBUTION WIDTH-CV 16.9 % (11.5-14.5)
[2024-04-07 06:49] LABS: MEAN CORPUSCULAR HEMOGLOBIN 26 pg (27-31)
[2024-04-07 07:12] LABS: CALCIUM 8.9 mg/dL (8.4-10.2); CREATININE, serum 1.09 mg/dL (0.57-1.11); PHOSPHOROUS 3.3 mg/dL (2.3-4.7); POTASSIUM 3.2 mEq/L (3.5-4.5)
[2024-04-07] MEDS ORDERED: Potassium Bicarbonate/Citrate 20 MEQ Effervescent TAB PO SCH (08:00)
--- NOTE | 2024-04-07 08:39 | NUR ---
SW reviewed chart. Referral faxed to [facility] . Discharge plan: Return to [facility] in [place]
--- NOTE | 2024-04-07 12:08 | NUR ---
Data: Patient declined spiritual care visit offered during Slide Maker rounds. Assessment: None at this time. Patient declined. Plan of Care: Chaplains will remain available as needed/requested while Patient is admitted to this hospital.
--- NOTE | 2024-04-07 13:14 | NUR ---
Patient alert to self and situation. Follows verbal commands. Stable on 2L O2 via nc. Tolerating food and fluids well. Torres intact and draining clear/yellow urine. Vancomycin trough elevated this morning, pharmacy notified and morning dose held. Patient denies ongoing pain, just complains of being uncomfortable which is resolved with re-positioning. Call light within reach, fall precautions in place.
[2024-04-08] VITALS (18 sets, daily range): BP systolic 103–181; BP diastolic 50–104; PULSE 70–90; TEMP 97.4–99.2
[2024-04-08] MEDS ORDERED: hydrALAZINE 20 MG/ML 1 ML VIAL IV PRN (01:15)
[2024-04-08] MEDS ORDERED: LORazepam 2 MG/ML 1 ML VIAL IV ONE (02:45)
[2024-04-08] MEDS ORDERED: Furosemide 40 MG/4 ML VIAL IV ONE ×3 (03:15→17:15)
--- NOTE | 2024-04-08 05:30 | NUR ---
ASSESSMENT COMPLETE FOR DIRECTOR OF ROOMS. PT GIVEN WARMED PRBC. PT HYPRETENSIVE, DIAPHORETIC, ANXIOUS AND WHEEZING (BUT THE WHEEZING APPEARED TO BE MOSTLY IN HER THOAT, HOWEVER, PT DID HAVE COARSE CRACKLE SOUNDS IN HER LUNGS). TRANSFUSION STOP. HOSPITALIST CALLED. HOSPITALIST TO BEDSIDE TO EVALUATION PT. MEDICATIONS GIVEN PER ORDERS AND TRANSFUSION RESTARTED. I REMAINED WITH PT THROUGHOUT MOST OF THE TRANSFUSION. HOSPITALIST TO BEDSIDE A COUPLE OF TIMES DURING TRANSFUSION WELL. WILL CONTINUE TO MONITOR. FALL PRECAUTIONS IN PLACE. BED ALARM ON. CALL LIGHT WITHIN REACH.
--- NOTE | 2024-04-08 07:00 | NUR ---
awake resting in bed, bedside shift report received from DI Davenport
[2024-04-08 07:22] LABS: MEAN CORPUSCULAR HGB CONC 31 g/dl (33.0-37.0); MEAN PLATELET VOLUME 9.4 fl (7.4-10.4); PLATELET COUNT 369 K/mm3 (130-400); RED BLOOD COUNT 3.47 M/mm3 (4.10-5.30)
[2024-04-08 07:31] LABS: HEMATOCRIT 30.3 % (37.0-47.0); HEMOGLOBIN 9.5 g/dl (12.5-16.0); MEAN CELL VOLUME 87 fl (80.0-100.0); MEAN CORPUSCULAR HEMOGLOBIN 27 pg (27-31)
[2024-04-08 08:29] LABS: ANISOCYTOSIS 2+; BAND 2 % (0-10); HYPOCHROMIA 1+; LYMPHOCYTE 11 % (20.0-51.0); NEUTROPHILS 82 % (42.0-75.2)
--- NOTE | 2024-04-08 08:55 | NUR ---
lighting technician called and asked nurse to check on patient as her rhythm was sporadic, CNAs in and providing incontinent care at this time, cocyx is reddened
[2024-04-08] MEDS ORDERED: Furosemide 40 MG TAB PO SCH (09:00)
[2024-04-08 09:01] LABS: CALCIUM 8.6 mg/dL (8.4-10.2); CREATININE, serum 0.96 mg/dL (0.57-1.11); POTASSIUM 3.5 mEq/L (3.5-4.5)
--- NOTE | 2024-04-08 09:14 | NUR ---
sitting up in bed eating breakfast
[2024-04-08] MEDS ORDERED: *Potassium Replacement Protocol MC SCH (09:30)
[2024-04-08] MEDS ORDERED: Potassium Bicarbonate/Citrate 20 MEQ Effervescent TAB PO SCH (09:30)
[2024-04-08] MEDS ORDERED: LORazepam 0.5 MG TAB PO ONE (10:15)
--- NOTE | 2024-04-08 10:15 | NUR ---
appears to be dozing, resp are moist sounding and rate is 24, awakened for assessment, is asking about her son and grandson being here, reminded her where she was and that her family has not been here today, full assessment completed, see interventions for further info, Dr Garner in to see patient,
--- NOTE | 2024-04-08 10:24 | NUR ---
KEISHA discussed discharge with attending. Attending states patient will be changed from IV abx to oral medications and should be stable for discharge today. RN voiced concerns of patient discharging. KEISHA called Cele at [facility]. She states that patient is wheelchair bound and self propels at baseline, is on 3 LPM oxygen at baseline, has periodic confusion. Cele states that they are unable to get medications today but states she can transport tomorrow morning. Dr. Garner notified of this information and will discharge patient tomorrow. Discharge plan: [facility] w/ HH
--- NOTE | 2024-04-08 10:30 | NUR ---
physical therapy in to work with patient assisted her up out of bed and was able to take a few steps to recliner, chair alarm on
--- NOTE | 2024-04-08 10:45 | NUR ---
given ativan 0.5mg as ordered
[2024-04-08 12:43] LABS: ARTERIAL BLOOD GAS PCO2 37.2 mmHg (35-45); ARTERIAL BLOOD GAS pH 7.49 (7.35-7.45)
[2024-04-08 12:44] LABS: ARTERIAL BLD GAS O2 SATURATION 99.2 % (92-100); ARTERIAL BLOOD GAS BASE EXCESS 4.6 (-2-2)
--- NOTE | 2024-04-08 13:30 | NUR ---
remains up in recliner and declines being ready to go back to bed
--- NOTE | 2024-04-08 14:05 | NUR ---
remains up in recliner, chair alarm sound and she wanted to get up, when attempted to stand she then changed her mind and went back to chair
--- NOTE | 2024-04-08 15:00 | NUR ---
chair alarm sounds, WELL TREATMENT OFFSIDER entered room and she was standing in front of chair, assisted up and to bedside commode
--- NOTE | 2024-04-08 17:30 | NUR ---
requesting to go around the carpenter in the WC, CNAs assisted her up and into WC and then up and down the halls, back to room and assisted back into recliner
[2024-04-08 18:07] LABS: CREATININE, serum 1.02 mg/dL (0.57-1.11)
[2024-04-08 18:08] LABS: ALBUMIN 3.2 g/dL (3.4-4.8); MAGNESIUM 1.9 mg/dL (1.6-2.6); POTASSIUM 3.6 mEq/L (3.5-4.5)
--- NOTE | 2024-04-08 18:09 | NUR ---
sitting up in chair eating supper, given scheduled meds, denies needs
--- NOTE | 2024-04-08 18:47 | NUR ---
bedside shift report given to DI Davenport
[2024-04-08] MEDS ORDERED: Melatonin 3 MG TAB PO SCH (21:00)
[2024-04-09] VITALS (8 sets, daily range): BP systolic 103–158; BP diastolic 48–75; PULSE 77–85; TEMP 97.5–98.4
[2024-04-09 06:52] LABS: BASO # 0.1 K/mm3 (0.0-0.2); BASO % 0.8 % (0.0-2.0); EOS # 0.1 K/mm3 (0.0-0.7); EOS % 1.2 % (0.0-4.0); GRAN % 72.8 % (42.2-75.2); LYMPH # 1.4 K/mm3 (1.2-3.4); LYMPH % 16.9 % (20.0-51.0); MEAN CELL VOLUME 87 fl (80.0-100.0); MEAN CORPUSCULAR HGB CONC 30 g/dl (33.0-37.0); MEAN PLATELET VOLUME 8.9 fl (7.4-10.4); MONO # 0.6 K/mm3 (0.1-0.6); MONO % 7.8 % (1.7-9.3); PLATELET COUNT 357 K/mm3 (130-400); RED BLOOD COUNT 3.52 M/mm3 (4.10-5.30)
[2024-04-09 07:02] LABS: HEMATOCRIT 30.6 % (37.0-47.0); HEMOGLOBIN 9.3 g/dl (12.5-16.0); MEAN CORPUSCULAR HEMOGLOBIN 26 pg (27-31)
[2024-04-09 07:19] LABS: ALBUMIN 2.6 g/dL (3.4-4.8); CALCIUM 8.6 mg/dL (8.4-10.2); CREATININE, serum 1.03 mg/dL (0.57-1.11); POTASSIUM 3.4 mEq/L (3.5-4.5)
[2024-04-09 08:39] LABS: PHOSPHOROUS 3.6 mg/dL (2.3-4.7)
--- NOTE | 2024-04-09 09:00 | NUR ---
Patient is sitting up in chair, alert and oriented x3, having her breakfast. Assessment completed, meds given. Complains of some cought but no sputum produced. Getting 3.5L O2NC. Call light within reach.
[2024-04-09] MEDS ORDERED: AMOXICILLIN 8751 TAB PO (10:21)
--- NOTE | 2024-04-09 10:27 | NUR ---
KEISHA attended clinical rounds. Patient stable for discharge to return to [facility] with HH PT/OT. KEISHA spoke with Cele Admin at [facility] who states they can transport patient at 1300. She provided report # of [phone]. RN notified of report # and transport time. Discharge plan: return to [facility] with HH
[2024-04-09] MEDS ORDERED: Amoxicillin/Clavulanate K+ 875/125 MG TAB PO ONE (10:30)
[2024-04-09] MEDS ORDERED: Potassium Bicarbonate/Citrate 20 MEQ Effervescent TAB PO SCH (10:30)
--- NOTE | 2024-04-09 10:55 | NUR ---
KEISHA faxed discharge orders to [facility] and [facility]. Discharg Plan: return to [facility] with HH
--- NOTE | 2024-04-09 12:27 | NUR ---
Pt's pericare provided, catheter mercedes and IV accesses discontinued. Telemetry discontinued. Report given to Maribeth [phone] at [facility]. Awaiting for them to pick patient up.
== END 2024-04-09 13:40 | disposition home or self-care (01) | DRG 871 ==
LOC: COL.ER 12:28 → MEDICAL 15:43
PROVIDERS: Internal Medicine; Physician Assistant; ADMIT Internal Medicine
PROC: 5A09357 Assistance with Respiratory Ventilation, Less than 24 Consecutive Hours, Continuous Positive Airway Pressure (ICD-10-PCS; 2024-04-05)
PROC: 30233N1 Transfusion of Nonautologous Red Blood Cells into Peripheral Vein, Percutaneous Approach (ICD-10-PCS; principal; 2024-04-08)
DX: A41.9 Sepsis, unspecified organism (principal); G93.41 Metabolic encephalopathy; I50.33 Acute on chronic diastolic (congestive) heart failure; J18.9 Pneumonia, unspecified organism; J96.01 Acute respiratory failure with hypoxia; N17.9 Acute kidney failure, unspecified; I69.351 Hemiplegia and hemiparesis following cerebral infarction affecting right dominant side; G25.81 Restless legs syndrome; K21.9 Gastro-esophageal reflux disease without esophagitis; E87.5 Hyperkalemia; F03.90 Unspecified dementia, unspecified severity, without behavioral disturbance, psychotic disturbance, mood disturbance, and anxiety; Z20.822 Contact with and (suspected) exposure to COVID-19; I48.91 Unspecified atrial fibrillation; Z66 Do not resuscitate; I11.0 Hypertensive heart disease with heart failure; D50.9 Iron deficiency anemia, unspecified; E87.6 Hypokalemia; Z87.440 Personal history of urinary (tract) infections; Z99.81 Dependence on supplemental oxygen; Z79.899 Other long term (current) drug therapy; Z79.82 Long term (current) use of aspirin
CPT/HCPCS: C9113; J0360; J1650; J1940; J2060; J2470; J2543; J3370; J7030; J7050; P9016

== ENCOUNTER 2024-06-18 10:48 | Inpatient (IN) | payer MEDICARE, OTHER ==
[~2024-06-18] VITALS: Ht 162.6 cm; Wt 97.4 kg
[~2024-06-18 10:48] MED LIST changes: +AMOXICILLIN 8751 TAB PO; +APRESOLINE 25MG25 MG PO; +ASPERCREME85 GM TP; +ATARAX 10MG10 MG/TAB PO; +HALLS9.1 MG PO; +K-DUR 10 MEQ T10 MEQ PO; +LASIX 40MG TABL40 MG PO; +NYSTATIN100000 U/1 TOP; +PRESERVISION1 SGL PO; +TYLENOL 325MG325 MG PO; +ZEBETA 5MG5 MG PO
[2024-06-18] MEDS ORDERED: cefTRIAXone 1 G in Water For Injection,Sterile 10 ML IV ONE (12:15)
[2024-06-18 12:26] LABS: BASO # 0.1 K/mm3 (0.0-0.2); BASO % 0.9 % (0.0-2.0); EOS # 0.2 K/mm3 (0.0-0.7); EOS % 2.6 % (0.0-4.0); GRAN % 66.6 % (42.2-75.2); LYMPH # 1.7 K/mm3 (1.2-3.4); MEAN CELL VOLUME 94 fl (80.0-100.0); MEAN CORPUSCULAR HGB CONC 31 g/dl (33.0-37.0); MEAN PLATELET VOLUME 9.1 fl (7.4-10.4); MONO % 10.6 % (1.7-9.3); PLATELET COUNT 274 K/mm3 (130-400); REDCELL DISTRIBUTION WIDTH-CV 17.1 % (11.5-14.5)
[2024-06-18 12:27] LABS: HEMATOCRIT 29.2 % (37.0-47.0); MEAN CORPUSCULAR HEMOGLOBIN 29 pg (27-31)
[2024-06-18 12:45] LABS: ALBUMIN 2.6 g/dL (3.4-4.8); BILIRUBIN,TOTAL 0.2 mg/dL (0.2-1.2); CALCIUM 8.9 mg/dL (8.4-10.2); CREATININE, serum 0.87 mg/dL (0.57-1.11); POTASSIUM 4.3 mEq/L (3.5-4.5); TOTAL PROTEIN 8.8 g/dl (6.2-8.1)
[2024-06-18 14:31] LABS: COLLECTION METHOD CATHETER
[2024-06-18 14:38] LABS: PH 5.5 (5.0-8.5); URINE APPEARANCE CLEAR (CLEAR/HAZY); URINE BLOOD NEGATIVE (NEGATIVE); URINE COLOR YELLOW (YELLOW); URINE GLUCOSE NEGATIVE (NEGATIVE); URINE KETONE NEGATIVE (NEGATIVE); URINE NITRATE NEGATIVE (NEGATIVE); URINE PROTEIN(semi-quant) NEGATIVE (NEGATIVE); URINE UROBILINOGEN 0.2 E.U/dL (0.2-1.0)
[2024-06-18] MEDS ORDERED: NS 100 ML IV SCH (15:07)
[2024-06-18] MEDS ORDERED: Iohexol 300 - 100 ML VIAL IV ONE (15:08)
[2024-06-18] MEDS ORDERED: Furosemide 40 MG/4 ML VIAL IV ONE (15:30)
[2024-06-18] MEDS ORDERED: Ondansetron 4 MG/2 ML VIAL IV PRN (15:30)
[2024-06-18] MEDS ORDERED: Acetaminophen 325 MG TAB PO PRN (15:30)
[2024-06-18 16:11] LABS: ARTERIAL BLD GAS O2 SATURATION 91.9 % (92-100); ARTERIAL BLD GAS TCO2 CT 41.1; ARTERIAL BLOOD GAS BASE EXCESS 12.4 (-2-2); ARTERIAL BLOOD GAS HCO3 39.1 meq/L (22-26); ARTERIAL BLOOD GAS PCO2 64.2 mmHg (35-45); ARTERIAL BLOOD GAS PO2 66.4 mmHg (80-100)
[2024-06-18 17:04] VITALS: BP 117/62; PULSE 79; TEMP 98.7
[2024-06-18] MEDS ORDERED: LORazepam 2 MG/ML 1 ML VIAL IV ONE (17:15)
--- NOTE | 2024-06-18 17:29 | NUR ---
Patient up to medical floor from ED, awake, alert and oriented x2. Confused, thinking staff are people that she knows. Shortness of breath at rest. Family at the bedside. RT to room to place bipap. Fall precautions in place, bed in lowest position with call light within reach.
[2024-06-18] MEDS ORDERED: PROAIR HFA0.09 MG/AC IH (17:54)
[2024-06-18] MEDS ORDERED: MILK OF MA400 MG/52 PO (17:55)
[2024-06-18] MEDS ORDERED: GOOD SENSE400 MG/5 M PO (17:55)
[2024-06-18] MEDS ORDERED: DULCOLAX S10 MG/SUPP RC (17:56)
[2024-06-18] MEDS ORDERED: ANTACID500 M1 PO (17:56)
[2024-06-18] MEDS ORDERED: MELATONIN5 M1 SL (17:57)
[2024-06-18] MEDS ORDERED: FERRO-TIME325 MG PO (17:58)
[2024-06-18 18:07] VITALS: BP_SYST 117
--- NOTE | 2024-06-18 20:00 | NUR ---
REPORT GIVEN TO JOVANA RIDER. pt STABLE.
[2024-06-18] MEDS ORDERED: OLANZapine 5 MG,Water For Injection,Sterile 1 ML IM PRN (20:30)
[2024-06-18] MEDS ORDERED: guaiFENesin Oral Soln 200 MG/10 ML UD PO PRN (20:30)
[2024-06-18 20:54] VITALS: BP 136/58; PULSE 81; TEMP 99.1
[2024-06-18 21:00] VITALS: BP_SYST 152
[2024-06-18] MEDS ORDERED: Nystatin 100,000 Units/GM Cream 15 GM TUBE TP SCH (21:00)
[2024-06-18] MEDS ORDERED: Atorvastatin 80 MG TAB PO SCH (21:00)
[2024-06-18] MEDS ORDERED: hydrALAZINE 25 MG TAB PO SCH (21:00)
--- NOTE | 2024-06-18 21:00 | NUR ---
PT AWAKE AND RESTING IN BED. A&O X2. UNABLE TO IDENTIFY PLACE OR SITUATION. PT REORIENTED. TELEMETRY IN PLACE. R FOREARM IV SITE PATIENT, DRESSING CDI. PT TURNED AND REPOSITIONED. PURWICK IN PLACE. INCONTINENT OF SOME URINE. 3L O2 VIA NC. SCHEDULED MEDS GIVEN PER eMAR. PT TOLERATED IT WELL WITH SEVERAL SIPS OF WATER. PT DENIES PAIN. BED ALARM ON AND CALL LIGHT WITHIN REACH.
--- NOTE | 2024-06-18 23:07 | NUR ---
RT IN TO OBTAIN ABG ON PT AT 2230. PT BECAME VERY AGITATED PULLING ON BIPAP YELLING "TAKE IT OFF" AND "I CAN'T BREATH" REPEATEDLY. UNABLE TO OBTAIN ABG DUE TO PT AGITATION AND PT REFUSAL. PT PLACED ON 3L VIA NC SATTING 96%. PROVIDER AND RN AWARE.
[2024-06-18 23:35] VITALS: BP 152/46; PULSE 88; TEMP 98.2
[2024-06-19] VITALS (11 sets, daily range): BP systolic 106–152; BP diastolic 36–68; PULSE 74–89; TEMP 98–100
--- NOTE | 2024-06-19 01:38 | NUR ---
PT LOUDLY GRUNTING, HEARD FROM NURSE'S STATION. 3L O2 VIA NC. 95% O2 SAT. PT REORIENTED AND COMFORTED. PT ABLE TO WIGGLE TOES AND EQUAL HAND STRENGTH. TELMETRY REAPPLIED. REORIENTED TO TELE BOX. PT C/O SOME EYE PAIN. PRN PAIN RELIEF OFFERED. NO FURTHER CONCERNS.
--- NOTE | 2024-06-19 02:21 | NUR ---
PT RESTING IN BED, AUDIBLY SNORING. OFFERED PRN TYLENOL FOR EYE PAIN TO WHICH PT REFUSED AND SAID SHE WAS NOT IN PAIN BECAUSE SHE WAS SLEEPING. ALL NEEDS MET AT THIS TIME. BED ALARM ON AND CALL LIGHT WITHIN REACH.
--- NOTE | 2024-06-19 05:45 | NUR ---
PT AGITATED AND YELLING, HEARD AT NURSE'S STATION. PT FOUND WITH TELEMETRY, GOWN, AND NASAL CANNULA OFF. PT REORIENTED. THIS NURSE ATTEMPTED TO CONSOLE PT. PT STILL AGITATED AND PULLING AT OXYGEN TUBING AND THIS NURSE'S SHIRT. PRN ZYPREXA GIVEN IN L THIGH. TELEMETRY AND 3L O2 VIA NC REAPPLIED. PT CONSOLABLE AND MORE QUIET. ALL NEEDS MET AT THIS TIME.
[2024-06-19] MEDS ORDERED: Omeprazole 40 MG **** subs to Pantoprazole 40 MG PO SCH (07:00)
[2024-06-19 07:10] LABS: BASO # 0.1 K/mm3 (0.0-0.2); BASO % 1.1 % (0.0-2.0); EOS # 0.1 K/mm3 (0.0-0.7); EOS % 1.4 % (0.0-4.0); GRAN # 4.9 K/mm3 (1.4-6.5); GRAN % 60.1 % (42.2-75.2); LYMPH # 2.3 K/mm3 (1.2-3.4); LYMPH % 28.7 % (20.0-51.0); MEAN CELL VOLUME 90 fl (80.0-100.0); MEAN CORPUSCULAR HGB CONC 32 g/dl (33.0-37.0); MEAN PLATELET VOLUME 9.2 fl (7.4-10.4); MONO # 0.7 K/mm3 (0.1-0.6); MONO % 8.6 % (1.7-9.3); PLATELET COUNT 320 K/mm3 (130-400); RED BLOOD COUNT 3.04 M/mm3 (4.10-5.30); REDCELL DISTRIBUTION WIDTH-CV 17.2 % (11.5-14.5)
[2024-06-19 07:11] LABS: HEMATOCRIT 27.2 % (37.0-47.0); HEMOGLOBIN 8.8 g/dl (12.5-16.0); MEAN CORPUSCULAR HEMOGLOBIN 29 pg (27-31)
[2024-06-19 07:19] LABS: ALBUMIN 2.7 g/dL (3.4-4.8); BILIRUBIN,TOTAL 0.3 mg/dL (0.2-1.2); CALCIUM 9.1 mg/dL (8.4-10.2); CREATININE, serum 0.97 mg/dL (0.57-1.11); TOTAL PROTEIN 8.7 g/dl (6.2-8.1)
--- NOTE | 2024-06-19 08:40 | NUR ---
PATIENT LAYING IN BED. ALERT AND ORIENTED TO SELF. PATIENT REPORTS PAIN OF 9/10 GENERALIZED. ON 3L 02/NC. PATIENT HAS BILATERAL LOWER EXTREMITY EDEMA AND REDNESS. PATIENT RIGHT LOWER LEG IRBY AREA HAS SKIN TEAR,DRESSING PLACED OVER BY WOUNDCARE NURSE.CALL LIGHT WITHIN REACH. BED AT LOWEST POSITION. FALL PRECAUTION INPLACE.
[2024-06-19] MEDS ORDERED: Furosemide 40 MG/4 ML VIAL IV ONE (08:45)
[2024-06-19] MEDS ORDERED: Clopidogrel 75 MG TAB PO SCH (09:00)
[2024-06-19] MEDS ORDERED: Bisoprolol 5 MG TAB PO SCH (09:00)
--- NOTE | 2024-06-19 10:04 | NUR ---
KEISHA reviewed chart, patient is in isolation. Patient resides at [facility] in [place], [place]. KEISHA contacted [employer] Cele ([phone]) to obtain information. Cele verified that patient sees Dr. Marley Bang at [facility] for healthcare needs, uses [facility] pharmacy. Patient is wheelchair bound, uses oxygen provided by [employer] at 2 LPM. Patient has DPOA assigned to her son Rei Huerta ([phone]) and son Gomez Huerta ([phone]). Cele states that [facility] had [facility] in the past but nothing at this time. Plan is for patient to return to [facility] at discharge. Discharge plan: Home ([facility])
[2024-06-19] MEDS ORDERED: ATARAX 10MG10 MG/TAB PO (10:05)
[2024-06-19] MEDS ORDERED: MIRALAX PA17 GM/Dose PO (10:20)
--- NOTE | 2024-06-19 13:06 | NUR ---
SW faxed clinical updates to [facility] NAIN Discharge plan: [facility]
[2024-06-19] MEDS ORDERED: rOPINIRole 0.5 MG TAB PO SCH (15:00)
--- NOTE | 2024-06-19 19:00 | NUR ---
PATIENT SITTING UP IN BED WITH TV ON WITH NO FAMILY PRESENT WITH NO ACUTE DISTRESS NOTED. PATIENT ON 2.5 LITERS OF OXYGEN VIA NC. INT TO RIGHT FOREARM INTACT WITH NO COMPLICAITONS NOTED. TELEMETRY INTACT. BEDSIDE SHIFT REPORT COMPLETED WITH JOSE LUIS AT THIS TIME. PATIENT DENIES ANY NEEDS. BED IN LOW POSITION WITH WHEELS LOCKED WITH RAILS UP X3 AND CALL LIGHT WITHIN REACH. BED ALARM ON.
[2024-06-19] MEDS ORDERED: traMADol 50 MG TAB PO SCH (21:00)
--- NOTE | 2024-06-19 21:12 | NUR ---
PATIENT RESTING WITH EYES CLOSED IN THE APPEARANCE OF SLEEP WITH TV ON WITH NO ACUTE DISTRESS NOTED. PATIENT EASILY AROUSED. PATIENT ON 2.5 LITERS OF OXYGEN VIA NC. INT TO RIGHT FOREARM INTACT WITH NO COMPLICATIONS NOTED. TELEMETRY INTACT. DRESSING TO RIGHT LOWER LEG AND FOOT INTACT, CLEAN, AND DRY. PILLOW PLACED UNDER FEET. ASSESSMENT AND MEDICATION ADMINISTRATION COMPLETED AT THIS TIME. PATIENT TOLERATED WELL. PUREWICK IN PLACE AND DRAINING CLEAR YELLOW URINE. ALL NEEDS MET. BED IN LOW POSITON WITH WHEELS LOCKED WITH RAILS UP X3 AND CALL LIGHT WITHIN REACH. BED ALARM ON.
[2024-06-20] VITALS (8 sets, daily range): BP systolic 127–146; BP diastolic 66–72; PULSE 62–85; TEMP 97–98.4
[2024-06-20 06:23] LABS: BASO % 0.6 % (0.0-2.0); EOS # 0.1 K/mm3 (0.0-0.7); GRAN # 3.7 K/mm3 (1.4-6.5); GRAN % 56.4 % (42.2-75.2); LYMPH # 1.9 K/mm3 (1.2-3.4); LYMPH % 28.3 % (20.0-51.0); MEAN CELL VOLUME 90 fl (80.0-100.0); MEAN CORPUSCULAR HGB CONC 31 g/dl (33.0-37.0); MEAN PLATELET VOLUME 9.4 fl (7.4-10.4); MONO # 0.8 K/mm3 (0.1-0.6); MONO % 12.4 % (1.7-9.3); PLATELET COUNT 281 K/mm3 (130-400); RED BLOOD COUNT 2.95 M/mm3 (4.10-5.30); REDCELL DISTRIBUTION WIDTH-CV 16.9 % (11.5-14.5)
[2024-06-20 06:27] LABS: HEMATOCRIT 26.5 % (37.0-47.0); HEMOGLOBIN 8.3 g/dl (12.5-16.0); MEAN CORPUSCULAR HEMOGLOBIN 28 pg (27-31)
[2024-06-20 06:44] LABS: ALBUMIN 2.5 g/dL (3.4-4.8); BILIRUBIN,TOTAL 0.3 mg/dL (0.2-1.2); CALCIUM 8.7 mg/dL (8.4-10.2); CREATININE, serum 1.05 mg/dL (0.57-1.11); POTASSIUM 3.7 mEq/L (3.5-4.5); TOTAL PROTEIN 8.2 g/dl (6.2-8.1)
--- NOTE | 2024-06-20 08:00 | NUR ---
PATIENT ALERT AND ORIENTED X2 SITTING IN BED RESTING. REPORTS PAIN OF 9/10. PATIENT ON 2.5 /.PUREWICK DRAINING TEACOLOR URINE. PATIENT CALL LIGHT WITHIN REACH. BED ALARM ON.
[2024-06-20 10:25] LABS: ARTERIAL BLD GAS O2 SATURATION 96.4 % (92-100); ARTERIAL BLD GAS TCO2 CT 36.8; ARTERIAL BLOOD GAS BASE EXCESS 10.4 (-2-2); ARTERIAL BLOOD GAS HCO3 35.3 meq/L (22-26); ARTERIAL BLOOD GAS PCO2 49.7 mmHg (35-45); ARTERIAL BLOOD GAS PO2 86.1 mmHg (80-100); ARTERIAL BLOOD GAS pH 7.47 (7.35-7.45)
--- NOTE | 2024-06-20 11:13 | NUR ---
SW faxed clinical updates to [facility]. Discharge plan: [facility]
[2024-06-20] MEDS ORDERED: LOPRESSOR 225 MG/TAB PO (12:20)
--- NOTE | 2024-06-20 12:39 | NUR ---
KEISHA notified by attending that patient is stable for discharge back to [facility]. KEISHA spoke with Director Cele who stated they are prepared to accept patient back today as long as she is not on any IVs. KEISHA confirmed patient does not have IVs. Cele provided Nurse 2 Nurse number of [phone] which was given to DI Bradley. Cele to transport patient at 1400. Advertising Sales Agent notified of transport time.
--- NOTE | 2024-06-20 12:40 | NUR ---
stoneworker was notified patient is medically ready for discharge. [facility] is working on transportation to pharmacy picking technician patient. SW left a voicemail with Rei son/DPOA-HC, regarding discharge back to [place]. KEISHA notified Gomez son/alternate DPOA-HC, regarding discharge back to [place] today. No questions or concerns. KEISHA faxed discharge orders to [facility]. Discharge plan: Return to [facility] [place]
--- NOTE | 2024-06-20 13:20 | NUR ---
PATIENT DISCHARGE INSTRUCTIONS GIVEN. ANSWERED PATIENT QUESTIONS AND CONCERNS VERBALIZED UNDERSTANDING. DENIED ANY OTHER CONCERN. ASSISTED PATIENT GETTING DRESSED. TELE DISCONTINUED. IV DISCONTINUED. CALL LIGHT WITHIN REACH.
--- NOTE | 2024-06-20 14:00 | NUR ---
PATIENT ESCORTED OUT OF UNIT BY PATIENT ASSISTED [facility] STAFF. ACCOMPANIED BY PCT.
--- NOTE | 2024-06-20 15:25 | NUR ---
REPORT WAS BOYD DTO NURSE MARLIN RECEIVING PATIENT.
== END 2024-06-20 15:25 | disposition home or self-care (01) | DRG 189 ==
LOC: COL.ER 10:48 → MEDICAL 14:33
PROVIDERS: Personal Emergency Response Attendant; Physician Assistant; ADMIT Internal Medicine
DX: J96.21 Acute and chronic respiratory failure with hypoxia (principal); R45.1 Restlessness and agitation; D64.9 Anemia, unspecified; I16.0 Hypertensive urgency; I48.91 Unspecified atrial fibrillation; Z86.73 Personal history of transient ischemic attack (TIA), and cerebral infarction without residual deficits; F03.90 Unspecified dementia, unspecified severity, without behavioral disturbance, psychotic disturbance, mood disturbance, and anxiety; K21.9 Gastro-esophageal reflux disease without esophagitis; G25.81 Restless legs syndrome; R53.81 Other malaise
CPT/HCPCS: A9284; J0696; J1650; J1940; J2060; J2359; Q9967

== ENCOUNTER 2024-07-28 14:14 | Inpatient (IN) | payer MEDICARE, OTHER ==
[~2024-07-28] VITALS: Ht 157.5 cm; Wt 84.1 kg
[~2024-07-28 14:14] MED LIST changes: +ANTACID500 M1 PO; +DULCOLAX S10 MG/SUPP RC; +FERRO-TIME325 MG PO; +GOOD SENSE400 MG/5 M PO; +LOPRESSOR 225 MG/TAB PO; +MELATONIN5 M1 SL; +MILK OF MA400 MG/52 PO; +MIRALAX PA17 GM/Dose PO
[2024-07-28 14:56] LABS: BASO # 0.1 K/mm3 (0.0-0.2); BASO % 0.4 % (0.0-2.0); EOS # 0.1 K/mm3 (0.0-0.7); EOS % 0.3 % (0.0-4.0); GRAN # 14.7 K/mm3 (1.4-6.5); GRAN % 83.1 % (42.2-75.2); HEMATOCRIT 40.8 % (37.0-47.0); HEMOGLOBIN 12.6 g/dl (12.5-16.0); LYMPH # 1.4 K/mm3 (1.2-3.4); LYMPH % 7.7 % (20.0-51.0); MEAN CELL VOLUME 88 fl (80.0-100.0); MEAN CORPUSCULAR HEMOGLOBIN 27 pg (27-31); MEAN CORPUSCULAR HGB CONC 31 g/dl (33.0-37.0); MONO # 1.4 K/mm3 (0.1-0.6); PLATELET COUNT 423 K/mm3 (130-400); RED BLOOD COUNT 4.64 M/mm3 (4.10-5.30); REDCELL DISTRIBUTION WIDTH-CV 15.7 % (11.5-14.5)
[2024-07-28 15:02] LABS: INR 1.1 (0.8-3.0); PROTHROMBIN TIME 12.3 SECONDS (9.7-12.8)
[2024-07-28 15:11] LABS: COLLECTION METHOD CATHETER
[2024-07-28 15:15] LABS: ALBUMIN 2.7 g/dL (3.4-4.8); BILIRUBIN,TOTAL 0.2 mg/dL (0.2-1.2); CREATININE, serum 1.58 mg/dL (0.57-1.11); POTASSIUM 4.5 mEq/L (3.5-4.5); TOTAL PROTEIN 9.6 g/dl (6.2-8.1)
[2024-07-28 15:21] LABS: ARTERIAL BLD GAS O2 SATURATION 93.5 % (92-100); ARTERIAL BLD GAS TCO2 CT 33.5; ARTERIAL BLOOD GAS BASE EXCESS 5.5 (-2-2); ARTERIAL BLOOD GAS HCO3 31.8 meq/L (22-26); ARTERIAL BLOOD GAS PCO2 54.1 mmHg (35-45); ARTERIAL BLOOD GAS PO2 69.6 mmHg (80-100); ARTERIAL BLOOD GAS pH 7.39 (7.35-7.45)
[2024-07-28 15:29] LABS: URINE APPEARANCE CLEAR (CLEAR/HAZY); URINE BLOOD NEGATIVE (NEGATIVE); URINE COLOR YELLOW (YELLOW); URINE GLUCOSE NEGATIVE (NEGATIVE); URINE KETONE NEGATIVE (NEGATIVE); URINE NITRATE NEGATIVE (NEGATIVE); URINE PROTEIN(semi-quant) TRACE (NEGATIVE); URINE UROBILINOGEN 0.2 E.U/dL (0.2-1.0)
[2024-07-28 15:45] LABS: SQUAMOUS EPITHELIAL 0-2 /hpf (0-10); URINE BACTERIA NONE SEEN /hpf (NONE SEEN); URINE RBC 0-2 /hpf (0-2); URINE WBC 0-2 /hpf (0-2)
[2024-07-28 15:49] LABS: THYROID STIMULATING HORMONE 3.605 uIU/mL (0.350-4.940)
[2024-07-28 15:54] LABS: TROPONIN-I 0.05 ng/mL (0.00-0.033)
[2024-07-28] MEDS ORDERED: cefTRIAXone 1 G in Water For Injection,Sterile 10 ML IV ONE (16:15)
[2024-07-28] MEDS ORDERED: ZAROXOLYN 2.52.5 MG PO (17:43)
[2024-07-28] MEDS ORDERED: Acetaminophen 325 MG TAB PO PRN (18:45)
[2024-07-28 20:00] VITALS: BP 136/57; BP_SYST 135; PULSE 102; TEMP 98.2
[2024-07-28] MEDS ORDERED: NS 1,000 ML IV SCH (20:00)
--- NOTE | 2024-07-28 20:00 | NUR ---
PATIENT WAS RECENTLY ADMITED TO THE FLOOR ON DAY SHIFT, PRIOR TO SHIFT CHANGE. PATIENT HAS KNOWN HX OF DEMENTIA AND LIVES IN [facility] WHERE SHE IS WC BOUND. PATIENT YELLING OUT, WANTING STAFF TO STAY IN HER ROOM, REPEATING THE SAME PHRASES. PATIENT HAVING DIFFICULTY ANSWERING QUESTIONS SHE JUST REPEATS HERSELF AND THE STAFF WITH LONG PERIODS OF GRUNTING BETWEEN WORDS. PATIENT ADMITED WITH INCREASED AMS/CONFUSION. VSS ON TELE. 02 @ 3L PER NC WITH SATS IN MID TO UPPER 90'S. PATIENT WEARS 02 @ 2L AT BASELINE. PUREWICK INPLACE. NOTED EXCORIATED GROIN FOLDS, SEE SHIFT ASSESSMENT. HEAD TO TOE ASSESSMENT COMPLETE. NS INFUSING VIA PUMP INTO RIGHT FORARM IV. ADMISSION ORDERS IN PROCESS. CALL LIGHT IN REACH. BED ALARM ON. PATIENT'S ROOM IS ACCROSS FROM THE NURSES STATION.
[2024-07-28 20:06] VITALS: BP 136/57; PULSE 102; TEMP 98.2
[2024-07-28 21:00] VITALS: BP_SYST 136
[2024-07-28] MEDS ORDERED: Atorvastatin 80 MG TAB PO SCH (21:00)
--- NOTE | 2024-07-28 21:00 | NUR ---
PATIENT HAD INCONTINENT LIQUID DIARRHEA THAT REQUIRED A COMPLETE BED CHANGE. PATIENT YELLED OUT "THEY ARE KILLING ME" THE WHOLE TIME THE STAFF CLEANED HER UP. PATIENT ALSO YELLED OUT A FEW NAMES THAT ARE NOT KNOWN TO THE HOSPITAL STAFF. PATIENT HAS A DIFFICULT TIME ANSWERING QUESTIONS OR CALMING DOWN. SHE JUST SAYS THE SAME WORDS OVER AND OVER.
[2024-07-28] MEDS ORDERED: Ziprasidone 10 MG,Water For Injection,Sterile 0.5 ML IM ONE (21:30)
--- NOTE | 2024-07-28 21:30 | NUR ---
PATIENT HAS BEEN YELLING FOR OVER AN HOUR WITH NOTED CONFUSION. PATIENT REPEATS WORDS OR PHRASES OVER AND OVER AGAIN SUCH , "THEY ARE KILLING ME" AND "GIVE ME A SHOT" AND "SIT" OVER AND OVER AGAIN. WHEN NURSE STAFF ATTEMPTS TO REORIENT HER SHE SAYS WHATEVER THE STAFF SAYS TO HER, REPEATED. CALLED HOSPITALIST, SEE ORDERS FOR [facility].
--- NOTE | 2024-07-28 22:30 | NUR ---
PATIENT STILL YELLING OUT AFTER IM MADALYNDON. HOSPITALIST NOTIFIED, NO NEW ORDERS AT THIS TIME.
--- NOTE | 2024-07-28 23:20 | NUR ---
AFTER HOURS OF YELLING/GRUNTING/REPEATING PHRASES OVER AND OVER, PATIENT FINALLY HAS STARTED TO SETTLE DOWN AND GEODON MIGHT BE WORKING. PATIENT IS DROWSY AND RESTING UP IN BED.
[2024-07-29] VITALS (13 sets, daily range): BP systolic 99–145; BP diastolic 49–75; PULSE 65–106; TEMP 98.2–100
[2024-07-29] MEDS ORDERED: Heparin 5,000 UNITS/ML 1 ML VIAL SQ SCH
--- NOTE | 2024-07-29 | NUR ---
AFTER HOURS OF YELLING/GRUNTING/REPEATING PHRASES OVER AND OVER, PATIENT HAS FINALLY SETTLED DOWN AND RAFY SEEMS TO BE WORKING. PATIENT RESTING.
[2024-07-29 07:07] LABS: HEMOGLOBIN 11.8 g/dl (12.5-16.0); MEAN CELL VOLUME 86 fl (80.0-100.0); MEAN CORPUSCULAR HEMOGLOBIN 26 pg (27-31); MEAN CORPUSCULAR HGB CONC 30 g/dl (33.0-37.0); MEAN PLATELET VOLUME 8.8 fl (7.4-10.4); PLATELET COUNT 392 K/mm3 (130-400); RED BLOOD COUNT 4.55 M/mm3 (4.10-5.30); REDCELL DISTRIBUTION WIDTH-CV 15.8 % (11.5-14.5)
[2024-07-29 07:22] LABS: CALCIUM 8.8 mg/dL (8.4-10.2); CREATININE, serum 1.76 mg/dL (0.57-1.11); POTASSIUM 3.5 mEq/L (3.5-4.5)
--- NOTE | 2024-07-29 07:45 | NUR ---
Patient laying in bed, audible snoring. OM on and nursing staff repositioning as need. VSS. IV CDI, fluids infusing. Purewick in place. Call light within reach. Bed alarm on and door left open.
[2024-07-29 07:54] LABS: ANISOCYTOSIS 1+; BAND 6 % (0-10); LYMPHOCYTE 11 % (20.0-51.0); NEUTROPHILS 76 % (42.0-75.2); PLATELET ESTIMATE NORMAL (NORMAL)
[2024-07-29] MEDS ORDERED: Clopidogrel 75 MG TAB PO SCH (09:00)
--- NOTE | 2024-07-29 09:50 | NUR ---
steam trap worker notes pt is confused and yelling out throughout the night. KEISHA spoke with RN Brenna who confirmed this. SW called son, Rei [phone] to discus intake information. he could not confirm pt's PCP as it changed recently. She resides at the [facility] in [place] and they obtain medications for her with no difficulties. reported pharmacy is noted as [facility]. Son verified Medicare A/B and [employer] insurance. Son states pt needs assistance with ADLS and uses 2.5-3L oxygen and a wheelchair for DME. He verified DPOA-HC on file listing both him and son, Gomez [phone]. PT/OT pending Discharge Plan: return to [facility] [place]
--- NOTE | 2024-07-29 11:35 | NUR ---
reforestation worker faxed [facility]. Discharge Plan: return to [facility] [place]
[2024-07-29] MEDS ORDERED: Melatonin 3 MG TAB PO PRN (13:45)
[2024-07-29] MEDS ORDERED: rOPINIRole 0.5 MG TAB PO SCH (14:00)
--- NOTE | 2024-07-29 16:50 | NUR ---
16F mercedes catheter inserted. Pericare provided before and after removal. 10ml in balloon. Patient tolerated well. Cleaned up and repositioned to eat dinner. Call light within reach. Bed alarm on
[2024-07-29 17:35] LABS: CLOSTRIDIUM DIFF A/B POS
--- NOTE | 2024-07-29 19:15 | NUR ---
Received report from DI Ceaj. Pt is sleeping in bed, with bed in low position, bed alarms on and call light within reach. IVF's are running at this time. Torres is in place with no kinks in the tubing. Pt does not look in distress at this time. Will contiue with pt care.
[2024-07-29] MEDS ORDERED: Nystatin 100,000 Units/GM Cream 15 GM TUBE TP SCH (21:00)
[2024-07-29] MEDS ORDERED: Gabapentin 100 MG CAP PO SCH (21:00)
[2024-07-29] MEDS ORDERED: hydrOXYzine HCl 10 MG TAB PO SCH (21:00)
[2024-07-29] MEDS ORDERED: Eye Formula MVI w/Minerals TABLET PO SCH (21:00)
[2024-07-30] VITALS (13 sets, daily range): BP systolic 111–145; BP diastolic 39–81; PULSE 78–103; TEMP 99.3–99.9
[2024-07-30] MEDS ORDERED: Haloperidol Lactate 5 MG/ML VIAL IV ONE (01:15)
--- NOTE | 2024-07-30 01:44 | NUR ---
CALLED SB MALDONADO, FOR ORDERS. PATIENT VERY AGITATED, REQUIRING 3 STAFF MEMBERS TO KEEP PATIENT FROM PULLING OUT WILSON CATHETER, RECTAL TUBE AND IV. PATIENT PULLED IV. NEW IV STARTED. ORDER FOR IV HALDOL 10MG ONCE NOW OBTAINED. ADMINSTERED HALDOL VIA PERIPHERAL IV IN RIGHT FA. PATIENT TOLERATED AND APPEARED LESS AGITATED.
--- NOTE | 2024-07-30 06:35 | NUR ---
Pt pulled their IV at throughout the night and got to the point where pt was not able to calm down, pt was screaming and moaning well the nurses were trying to place an IV and haldol was given per hospitalist orders. Pt has rested the rest of the night. Vitals were stable throughout the night. Pt has a mercedes and rectal tube in place with no kinks in tubing. ABX's running at this time. Will give report to day shift nurse.
[2024-07-30] MEDS ORDERED: Omeprazole 40 MG **** subs to Pantoprazole 40 MG PO SCH (07:00)
[2024-07-30] MEDS ORDERED: Ferrous Sulfate 325 MG TAB PO SCH (09:00)
[2024-07-30] MEDS ORDERED: ASPERCREME85 GM TP (09:59)
--- NOTE | 2024-07-30 10:00 | NUR ---
PATIENT 2 SYLVIE WEDDING RING FOUND ON FLOOR IN ROOM. PATIENT HAS BEEN VERY CONFUSED AND COMBATIVE AT TIMES. RING MARKED WITH PATIENT INFO AND TURNED INTO NEIGHBORHOOD CONSERVATION OFFICER TO BE LOCKED UP TILL DISCHARGE TO KEEP IT SAFE. PATIENT AWARE BUT MAY FREQUENTLY FORGET. RING NOW WITH ANGELA VORA.
[2024-07-30] MEDS ORDERED: IMODIUM 2MG CAPS2 MG PO (10:02)
[2024-07-30 10:17] LABS: BASO # 0.1 K/mm3 (0.0-0.2); BASO % 0.4 % (0.0-2.0); EOS % 0.2 % (0.0-4.0); GRAN # 14.6 K/mm3 (1.4-6.5); GRAN % 77.8 % (42.2-75.2); HEMOGLOBIN 11.2 g/dl (12.5-16.0); LYMPH # 2.6 K/mm3 (1.2-3.4); LYMPH % 13.7 % (20.0-51.0); MEAN CELL VOLUME 84 fl (80.0-100.0); MEAN CORPUSCULAR HEMOGLOBIN 27 pg (27-31); MEAN CORPUSCULAR HGB CONC 32 g/dl (33.0-37.0); MEAN PLATELET VOLUME 9.1 fl (7.4-10.4); MONO # 1.4 K/mm3 (0.1-0.6); MONO % 7.3 % (1.7-9.3); PLATELET COUNT 384 K/mm3 (130-400); RED BLOOD COUNT 4.23 M/mm3 (4.10-5.30); REDCELL DISTRIBUTION WIDTH-CV 15.8 % (11.5-14.5)
[2024-07-30 10:20] LABS: CALCIUM 8.1 mg/dL (8.4-10.2); CREATININE, serum 1.34 mg/dL (0.57-1.11); HEMATOCRIT 35.3 % (37.0-47.0); POTASSIUM 3.3 mEq/L (3.5-4.5)
--- NOTE | 2024-07-30 10:23 | NUR ---
This RN put ring in HS safe.
--- NOTE | 2024-07-30 11:19 | NUR ---
PATIENT LAYING IN BED. CONFUSED. HEAD TO TOE ASSESSMENT COMPLETED. MORNING MEDS GIVEN. ASSISTED WITH HYGIENE CARE. PLACED HEEL PROTECTORS ON PATIENT. CHANGED LINENS. BED IN LOWEST POSITION. BED ALARM ON.
[2024-07-30] MEDS ORDERED: Vancomycin 125 MG CAP PO SCH (12:30)
--- NOTE | 2024-07-30 14:08 | NUR ---
Cosmetics [employer]ilet[employer] Salesperson contacted [facility] and faxed clinical updates. SW informed them that patient may be ready for discharge tomorrow. Maribeth at [facility] can provide transportation or she stated sometimes family transports. Discharge Plan: [facility] [place]
--- NOTE | 2024-07-30 17:00 | NUR ---
PATINT BEGAN TO CALL OUT "I NEED TO POOP", AFTER DONNING PPE, TURNED PT IN BED, RECTAL TUBE WAS COMPLETELY OUT, CLEANED PT, CHANGED LINENS, THEN ASSISTED PT WITH MEAL. PT REPORTED SHE HAD THE URGE TO HAVE ANOTHER BM. BED IZAGUIRRE PLACED. RETURNED IN 10 MIN, PATIENT WANTED IT REMOVED, REMOVED BED IZAGUIRRE, THEN RIGHT AFTER PT HAD ANOTHER BM. CLEANED PT AGAIN.
--- NOTE | 2024-07-30 20:30 | NUR ---
UPON SHIFT ASSSESSMENT, RICHARD WAS AWAKE IN BED AND A&O X 1. SHE HAD DISLODEGED HER 02 NC AND PLACED IT ON HER HEAD -O2 SAT WNL. SHE HAD AN EPISODE OF LOOSE STOOLS AND COMPLETE BED CHANGE, PERICARE AND WILSON CARE PROVIDED. HEELS SOFT-FEET FLOATED. REPETITIOUS SPEECH NOTED AND PATIENT CONFUSED. THIS APPEARS TO BE UNCHANGED SINCE ADMISSION. CALL LIGHT WITHIN REACH AND BED ALARM ON.
[2024-07-31] VITALS (8 sets, daily range): BP systolic 133–151; BP diastolic 42–72; PULSE 88–102; TEMP 96.9–99.3
--- NOTE | 2024-07-31 02:40 | NUR ---
PATIENT RIPPED OUT IV. CALL PLACED TO HOSPITALISTHARI. TORB TO DC IV ACCESS GIVEN PATIENT CANNOT TOLERATE IV D/T AMS AND IS RECIEVING NO IV MEDICATIONS.
--- NOTE | 2024-07-31 03:30 | NUR ---
PATIENT RIPPED OFF TELE AND DISLODGED 02 NC.
--- NOTE | 2024-07-31 08:00 | NUR ---
PATIENT IS VERY CONFUSED THIS AM AND YELLING OUT. PCT AT BEDSIDE MOST OF THE MORNING TO GET HER TO CALM DOWN, PATIENT DID EAT BREAKFAST WITH PCT FEEDING HER. INVESTIGATIONS DIRECTOR REPORTED PATIENT DIDN'T SLEEP A LOT AND PULLED OUT HER IV SITE. NO IV AT THIS TIME. RN ALSO NOTIFIED THIS AM BY REHAB PHYSICIAN, PATIENT PULLED HER TELE OFF AND GETS UPSET WHEN STAFF TRY TO PUT IT BACK ON. PCT ALSO REPORTED PATIENT PULLED HER OXYGEN OFF, NOW BACK ON AT 2L PER NC. PATIENT ON ISOLATION PRECAUTIONS FOR POSITIVE C-DIFF. INVESTIGATIONS DIRECTOR ALSO REPORTS MULTIPLE INCONTIENT LIQUID STOOLS THAT REQUIRED A COMPLETE BED CHANGE. PATIENT HAD A RECTAL TUBE YESTERDAY BUT PATIENT PUSHED IT OUT AND FIGHTS STAFF WHEN ATTEMPTING TO PUT IT BACK IN. WILSON TO DD WITH MOD AMOUNTS OF YELLOW URINE WITH SEDIMENT NOTED. NOTED EXCORIATED FOLDS, SEE SHIFT ASSESSMENT, CREAM APPLIED. HEAD TO TOE ASSESSMENT COMPLETE. AM MEDS GIVEN. CALL LIGHT IN REACH. BED ALARM ON. PATIENT ROOM ACCROSS FROM NURSES STATION.
--- NOTE | 2024-07-31 10:13 | NUR ---
Sweeper Operator [employer] contacted patient's son/DPOA, Rei to review IM. Rei verbalized understanding. SW placed form in chart and provided copy in discharge folder.
[2024-07-31] MEDS ORDERED: VANCOCIN H125 MG/CAP PO (11:13)
[2024-07-31] MEDS ORDERED: SEROQUEL 2525 MG/TAB PO (11:14)
[2024-07-31] MEDS ORDERED: QUEtiapine 25 MG TAB PO SCH (11:15)
--- NOTE | 2024-07-31 11:15 | NUR ---
PATIENT FOUND TO HAVE WATER ALL OVER HER FLOOR. PATIENT REPEATING "I DONT WANT WATER" OVER AND OVER. PATIENT THREW HER WATER ON THE FLOOR AND IS WANTING JUICE. PATIENT REPEATING "I WANT JUICE, ANYTHING BUT WATER, I WANT JUICE, ANYTHING BUT WATER". FLOOR CLEANED UP, LAB AT BEDSIDE TO DRAW DAILY LABS, AND PATIENT GIVEN JUICE WITH ASSISTANCE. PATIENT HAS BEEN REQUIRING A FEEDER WITH MEALS DURING HER STAY.
--- NOTE | 2024-07-31 12:00 | NUR ---
PATIENT ACTING OUT BY THROWING THINGS OFF HER TRAY AND YELLING OUT HER DEMANDS. PATIENT CURRENTLY YELLING THAT SHE WANTS HER LUNCH OVER AND OVER. PATIENT HAS BEEN TOLD SEVERAL TIMES HER LUNCH IS ORDERED AND THE KITCHEN IS MAKING IT. PATIENT STILL CONTINUES TO YELL OUT AND REQUIRED FREQUENT REDIRECTION.
--- NOTE | 2024-07-31 12:20 | NUR ---
PATIENT'S SON IS NOW AT BEDSIDE. HE REPORTS HIS MOM SEEMS PRETTY CONFUSED. PATIENT DOES HAVE A HX OF DEMENTIA HOWEVER, SON REPORTS THIS IS WORSE THAN HER BASELINE. SON AWARE OF DISCHARGE PLAN BACK TO [facility] TODAY. BALING MACHINE TENDER WORKING ON ARRANGMENTS.
--- NOTE | 2024-07-31 12:43 | NUR ---
tar pot worker attended interdisciplinary clinical rounding with Dr. Penaloza. Patient is medically ready to discharge back to [facility] today. KEISHA Payton completed IM with patient's DPOA-HC via telephone. KEISHA contacted [facility] and notified them of patient being medically ready for discharge. They stated they would call back with a time for transportation. KEISHA faxed clinical updates and discharge orders to [facility]. 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 KEISHA notified nursing of transport time. Discharge plan: [facility]
--- NOTE | 2024-07-31 15:37 | NUR ---
PATIENT'S SON HERE WITH LIFT VAN. PATIENT MAX ASSIST, TRANSFERED INTO WITH 2-3 STAFF. PATIENT HAD LARGE, LOOSE INCONTINENT STOOL PRIOR TO DISCHARGE. PATIENT CLEANED UP AND BRIEF INPLACE FOR DISCHARGE. DC'D TELE. NO IV SITE. PATIENT DISCHARGING WITH WILSON TO DD. CALLED REPORT TO MARLIN AT FACILITY. INFO PACKET & PERSONAL BELONGINGS GIVEN TO SON. 02 @ 1L PER [place] INPLACE. PATIENT DISCHARGED.
--- NOTE | 2024-07-31 16:38 | NUR ---
animal care worker was notified by patient's nurse spoke with Maribeth at [facility] whom was coming to pickling operator patient and did not know that patient was a two person assist right now so they needed to get another vehicle to get patient into. KEISHA contacted Maribeth to confirm they are able to care for patient there with two person assist as they have a lift that they can use if needed. KEISHA discussed patient's confusion to ensure that was also part of patient's baseline. Maribeth explained patient has been confused at her baseline but she does better when in her familiar space. Maribeth stated she was going to contact the son, Rei, to see if he could transport patient home since he has a wheelchair accessible van and they only have a van with a lift that patient would have to transfer into the van itself from the wheelchair which patient was previously able to do. KEISHA discussed home health and Maribeth stated patient previously had home health through [facility] and it would be benefical for her to have upon returning to them. KEISHA notified BS Mart, and Dr. Penaloza of the above information. KEISHA spoke with patient's son, Rei, whom reported he could come around 530 today and transport patient to [facility]. KEISHA provided the update above. KEISHA notified Maribeth at [facility] that patient will be picked up by Rei, patient's son. Maribeth is bringing patient's wheelchair, oxygen and pants for when they transfer her. Maribeth asked about patient's transferring, KEISHA reviewed PT and OT evaluations and latest PT notes. KEISHA expressed it would be best to have the lift available just in case patient were to need it at the home. KEISHA updated patient's nurse, SB Mart, and Dr. Penaloza of the information. KEISHA faxed referral and discharge orders to [facility]. KEISHA faxed updated orders for home health to [facility]. Discharge plan: [facility] [place] with [facility]
== END 2024-07-31 15:37 | disposition home health service (06) | DRG 189 ==
LOC: COL.ER 14:14 → SURG 17:03
PROVIDERS: Family Medicine; Internal Medicine; ADMIT Internal Medicine
DX: J96.21 Acute and chronic respiratory failure with hypoxia (principal); N39.0 Urinary tract infection, site not specified; N17.9 Acute kidney failure, unspecified; G93.40 Encephalopathy, unspecified; A04.72 Enterocolitis due to Clostridium difficile, not specified as recurrent; E87.6 Hypokalemia; D72.829 Elevated white blood cell count, unspecified; Z86.73 Personal history of transient ischemic attack (TIA), and cerebral infarction without residual deficits; F03.90 Unspecified dementia, unspecified severity, without behavioral disturbance, psychotic disturbance, mood disturbance, and anxiety; K21.9 Gastro-esophageal reflux disease without esophagitis; I48.0 Paroxysmal atrial fibrillation; G25.81 Restless legs syndrome; Z79.899 Other long term (current) drug therapy; Z79.82 Long term (current) use of aspirin; Z87.891 Personal history of nicotine dependence
CPT/HCPCS: J0696; J1630; J1644; J2543; J3486; J7030